=== PATIENT | male | born 1955 | race Two or more races ===

== ENCOUNTER 2022-06-09 09:57 | Inpatient (IN) | payer MEDICARE, MEDICAID ==
[~2022-06-09] VITALS: Ht 176 cm; Wt 90.7 kg
[~2022-06-09 09:57] MED LIST: ESOM20CA31 GT; HALO1TAB19 GT; LISI5TAB21 PO
[2022-06-09] MEDS ORDERED: ZOLPIDEM TARTRATE 10 MG TABLET PO PRN (15:00)
[2022-06-09] MEDS ORDERED: HALOPERIDOL 5 MG TABLET PO PRN (15:00)
[2022-06-09] MEDS ORDERED: LORazepam 2 MG TABLET PO PRN (15:00)
[2022-06-09] MEDS ORDERED: LEVO100 PO (15:04)
[2022-06-09] MEDS ORDERED: OMEP20CA13 PO (15:04)
[2022-06-09] MEDS ORDERED: SERT-440 PO (15:04)
[2022-06-09] MEDS ORDERED: LOVA20TA73 PO (15:04)
[2022-06-09] MEDS ORDERED: DIVA500T53 PO (15:04)
[2022-06-09] MEDS ORDERED: HALO10TA21 PO (15:04)
[2022-06-09] MEDS ORDERED: OXYB-34 PO (15:04)
[2022-06-09] MEDS ORDERED: DIPH50CA35 PO (15:04)
[2022-06-09] MEDS ORDERED: OLAN15TA36 PO (15:04)
[2022-06-09] MEDS ORDERED: BENZ2TAB71 PO (15:04)
[2022-06-09] MEDS ORDERED: ASPI-1444 PO (15:04)
[2022-06-09 15:05] VITALS: BP 138/62
[2022-06-09] MEDS: SERTRALINE HCL 100 MG TABLET PO SCH (19:29)
[2022-06-09] MEDS: OLANZapine 10 MG TABLET PO SCH (19:29)
[2022-06-09 20:24] VITALS: BP 129/71
[2022-06-09] MEDS: OXYBUTYNIN CHLORIDE 5 MG TABLET PO SCH ×2 (21:00→21:54)
[2022-06-09] MEDS: HALOPERIDOL 10 MG TABLET PO SCH ×2 (21:00→21:54)
[2022-06-09] MEDS: BENZTROPINE MESYLATE 2 MG TABLET PO SCH ×2 (21:00→21:51)
[2022-06-09] MEDS: DiphenhydrAMINE HCL 25 MG CAPSULE PO SCH ×2 (21:00→21:51)
[2022-06-09] MEDS: DIVALPROEX SODIUM 500 MG ER TABLET PO SCH ×2 (21:00→21:51)
[2022-06-10] MEDS: LEVOTHYROXINE SODIUM 100 MCG TABLET PO SCH (07:02)
[2022-06-10] MEDS: LOVASTATIN 20 MG TABLET PO SCH (07:14)
[2022-06-10 08:06] LABS: BASOPHILS % (AUTO) 0.3 % (0.0-2.0); EOSINOPHILS % (AUTO) 2.5 % (1.0-6.0); HEMATOCRIT 37.8 % (41-53); HEMOGLOBIN 12.6 g/dL (13.5-17.5); LYMPHOCYTES # (AUTO) 1.7 K/uL (1.0-4.8); LYMPHOCYTES % (AUTO) 22.7 % (22.0-44.0); MEAN CORPUSCULAR HEMOGLOBIN 29.3 pg (26.0-34.0); MEAN CORPUSCULAR HGB CONC 33.3 G/dL (31.0-37.0); MEAN CORPUSCULAR VOLUME 88 fL (80-100); MONOCYTES # (AUTO) 0.5 K/uL (0.1-1.0); MONOCYTES % (AUTO) 6.5 % (2.0-9.0); NEUTROPHILS # (AUTO) 5.2 K/uL (1.8-7.7); PLATELET COUNT (AUTO) 238 K/uL (150-450); RED BLOOD CELL COUNT(AUTO) 4.29 MIL/uL (4.50-5.90); RED CELL DISTRIBUTION WIDTH 16.2 % (11.5-14.5)
[2022-06-10] MEDS: SERTRALINE HCL 100 MG TABLET PO SCH ×2 (08:06→16:08)
[2022-06-10] MEDS: OMEPRAZOLE 20 MG CAPSULE PO SCH (08:06)
[2022-06-10] MEDS: ASPIRIN 81 MG DR TABLET PO SCH (08:06)
[2022-06-10] MEDS: OLANZapine 10 MG TABLET PO SCH ×2 (08:06→16:08)
[2022-06-10 08:34] VITALS: BP 121/66
[2022-06-10 08:37] LABS: HEMOGLOBIN A1C 6.4 % (3.8-5.6)
[2022-06-10 08:42] LABS: ALANINE AMINOTRANSFERASE 42 U/L (12-78); ALBUMIN 2.8 g/dL (3.4-5.0); ALKALINE PHOSPHATASE 111 U/L (46-116); ANION GAP 5 mmol/L (8-16); ASPARTATE AMINOTRANSFERASE 24 U/L (15-37); BILIRUBIN,TOTAL 0.4 mg/dL (0.1-1.0); CALCIUM, TOTAL 8.3 mg/dL (8.8-10.5); CARBON DIOXIDE 31 mmol/L (22-29); CHLORIDE 105 mmol/L (98-107); CHOL/HDL RATIO 3.5 (4.2-7.3); CHOLESTEROL 152 mg/dL (131-200); FREE T4 (FREE THYROXINE) 1.01 ng/dL (0.76-1.46); GLOMERULAR FILTR. RATE CALC > 60 mL/min (>60); GLUCOSE,RANDOM 89 mg/dL (70-110); HDL CHOLESTEROL 44 mg/dL (40-60); LDL CHOL (CALC.) 98 mg/dL (0-130); POTASSIUM 3.8 mmol/L (3.5-5.1); SODIUM SERUM 141 mmol/L (136-145); THYROID STIMULATING HORMONE 2.65 uIU/mL (0.36-3.74); TOTAL PROTEIN, SERUM 6.8 g/dL (6.4-8.2); TRIGLYCERIDES 48 mg/dL (15-150)
[2022-06-10] MEDS ORDERED: PETROLATUM,WHITE 28 GM JELLY TP PRN (11:00)
[2022-06-10] MEDS ORDERED: IBUPROFEN 400 MG TABLET PO PRN (11:00)
[2022-06-10] MEDS ORDERED: MAG HYDROX/AL HYDROX/SIMETH ES 30 ML SUSPENSION UDCUP PO PRN (11:00)
[2022-06-10] MEDS ORDERED: CloNIDine HCL 0.1 MG TABLET PO PRN (11:00)
[2022-06-10] MEDS ORDERED: NICOTINE 14 MG/24 HOUR PATCH TD PRN (11:00)
[2022-06-10] MEDS ORDERED: ALBUTEROL SULFATE HFA 90 MCG/PUFF 8 GM INHALER IH PRN (11:00)
[2022-06-10] MEDS ORDERED: MAGNESIUM HYDROXIDE SUSPENSION 30 ML UDCUP PO PRN (11:00)
[2022-06-10] MEDS ORDERED: DOCUSATE SODIUM 100 MG CAPSULE PO PRN (11:00)
[2022-06-10] MEDS ORDERED: GuaiFENesin/D-METHORPHAN [SUGAR-FREE] 200-20MG/10 ML SYRUP UDCUP PO PRN (11:00)
[2022-06-10] MEDS ORDERED: ONDANSETRON HCL 4 MG TABLET PO PRN (11:00)
[2022-06-10] MEDS ORDERED: LOPERAMIDE HCL 2 MG CAPSULE PO PRN (11:00)
[2022-06-10 20:04] VITALS: BP 135/73
[2022-06-10] MEDS: HALOPERIDOL 10 MG TABLET PO SCH (20:21)
[2022-06-10] MEDS: OXYBUTYNIN CHLORIDE 5 MG TABLET PO SCH (20:21)
[2022-06-10] MEDS: BENZTROPINE MESYLATE 2 MG TABLET PO SCH (20:22)
[2022-06-10] MEDS: DiphenhydrAMINE HCL 25 MG CAPSULE PO SCH (20:22)
[2022-06-10] MEDS: DIVALPROEX SODIUM 500 MG ER TABLET PO SCH (20:22)
[2022-06-11] MEDS: LEVOTHYROXINE SODIUM 100 MCG TABLET PO SCH (06:26)
[2022-06-11] MEDS ORDERED: PNEUMOCOCCAL VACCINE POLYVALENT 0.5 ML VIAL [PPSV23] IM. ONE (06:45)
[2022-06-11 08:03] VITALS: BP 144/84
[2022-06-11] MEDS: SERTRALINE HCL 100 MG TABLET PO SCH ×2 (09:18→16:43)
[2022-06-11] MEDS: ASPIRIN 81 MG DR TABLET PO SCH (09:18)
[2022-06-11] MEDS: OMEPRAZOLE 20 MG CAPSULE PO SCH (09:18)
[2022-06-11] MEDS: OLANZapine 10 MG TABLET PO SCH ×2 (09:19→16:43)
[2022-06-11] MEDS: LOVASTATIN 20 MG TABLET PO SCH (16:42)
[2022-06-11] MEDS: HALOPERIDOL 10 MG TABLET PO SCH (20:33)
[2022-06-11] MEDS: DIVALPROEX SODIUM 500 MG ER TABLET PO SCH (20:33)
[2022-06-11] MEDS: OXYBUTYNIN CHLORIDE 5 MG TABLET PO SCH (20:33)
[2022-06-11] MEDS: DiphenhydrAMINE HCL 25 MG CAPSULE PO SCH (20:33)
[2022-06-11] MEDS: BENZTROPINE MESYLATE 2 MG TABLET PO SCH (20:33)
[2022-06-11 20:43] VITALS: BP 128/74
[2022-06-12] MEDS: LEVOTHYROXINE SODIUM 100 MCG TABLET PO SCH (05:43)
[2022-06-12 08:38] VITALS: BP 141/70
[2022-06-12] MEDS: OLANZapine 10 MG TABLET PO SCH ×2 (08:47→16:51)
[2022-06-12] MEDS: SERTRALINE HCL 100 MG TABLET PO SCH ×2 (08:47→16:51)
[2022-06-12] MEDS: OMEPRAZOLE 20 MG CAPSULE PO SCH (08:47)
[2022-06-12] MEDS: ASPIRIN 81 MG DR TABLET PO SCH (08:48)
[2022-06-12] MEDS: LOVASTATIN 20 MG TABLET PO SCH (16:51)
[2022-06-12] MEDS: DiphenhydrAMINE HCL 25 MG CAPSULE PO SCH (20:32)
[2022-06-12] MEDS: BENZTROPINE MESYLATE 2 MG TABLET PO SCH (20:32)
[2022-06-12] MEDS: DIVALPROEX SODIUM 500 MG ER TABLET PO SCH (20:32)
[2022-06-12] MEDS: HALOPERIDOL 10 MG TABLET PO SCH (20:33)
[2022-06-12] MEDS: OXYBUTYNIN CHLORIDE 5 MG TABLET PO SCH (20:33)
[2022-06-12 20:40] VITALS: BP 142/72
[2022-06-13] MEDS: LEVOTHYROXINE SODIUM 100 MCG TABLET PO SCH (06:18)
[2022-06-13 08:18] LABS: APPEARANCE,URINE CLEAR (CLEAR); BILIRUBIN,URINE NEGATIVE (NEGATIVE); GLUCOSE, URINE (UA) NEGATIVE (NEGATIVE); KETONES,URINE NEGATIVE (NEGATIVE); LEUKOCYTE ESTERASE ,URINE NEGATIVE (NEGATIVE); NITRATE,URINE NEGATIVE (NEGATIVE); OCCULT BLOOD,URINE NEGATIVE (NEGATIVE); PH,URINE 5.5 (5.0-8.0); PROTEIN,URINE NEGATIVE (NEGATIVE); SPECIFIC GRAVITIY, URINE 1.005 (1.003-1.030); UROBILINOGEN,URINE <=1.0 mg/dL (<=1.0)
[2022-06-13 08:23] LABS: AMPHET/METH SCREEN,URINE NEGATIVE (NEGATIVE); BARBITURATE SCREEN, URINE NEGATIVE (NEGATIVE); BENZODIAZEPINES SCREEN,URINE NEGATIVE (NEGATIVE); CANNABINOID SCREEN,URINE NEGATIVE (NEGATIVE); COCAINE SCREEN,URINE NEGATIVE (NEGATIVE); METHADONE SCREEN, URINE NEGATIVE (NEGATIVE); OPIATE SCREEN,URINE NEGATIVE (NEGATIVE); PHENCYCLIDINE SCREEN,URINE NEGATIVE (NEGATIVE)
[2022-06-13 08:40] VITALS: BP 110/60
[2022-06-13] MEDS: ASPIRIN 81 MG DR TABLET PO SCH (09:04)
[2022-06-13] MEDS: SERTRALINE HCL 100 MG TABLET PO SCH ×2 (09:04→17:05)
[2022-06-13] MEDS: OLANZapine 10 MG TABLET PO SCH ×2 (09:04→17:05)
[2022-06-13] MEDS: OMEPRAZOLE 20 MG CAPSULE PO SCH (09:04)
[2022-06-13] MEDS: LOVASTATIN 20 MG TABLET PO SCH (17:05)
[2022-06-13 20:32] VITALS: BP 109/70
[2022-06-13] MEDS: DIVALPROEX SODIUM 500 MG ER TABLET PO SCH (20:42)
[2022-06-13] MEDS: HALOPERIDOL 10 MG TABLET PO SCH (20:42)
[2022-06-13] MEDS: OXYBUTYNIN CHLORIDE 5 MG TABLET PO SCH (20:43)
[2022-06-13] MEDS: BENZTROPINE MESYLATE 2 MG TABLET PO SCH (20:43)
[2022-06-13] MEDS: DiphenhydrAMINE HCL 25 MG CAPSULE PO SCH (20:43)
[2022-06-14] MEDS: LEVOTHYROXINE SODIUM 100 MCG TABLET PO SCH (06:13)
[2022-06-14 08:27] VITALS: BP 130/68
[2022-06-14] MEDS: SERTRALINE HCL 100 MG TABLET PO SCH ×2 (08:42→16:50)
[2022-06-14] MEDS: ASPIRIN 81 MG DR TABLET PO SCH (08:42)
[2022-06-14] MEDS: OLANZapine 10 MG TABLET PO SCH ×2 (08:42→16:50)
[2022-06-14] MEDS: OMEPRAZOLE 20 MG CAPSULE PO SCH (08:42)
[2022-06-14 11:30] LABS: GLUCOMETER DEV NAME(LOC) POC.BV
[2022-06-14] MEDS: LOVASTATIN 20 MG TABLET PO SCH (16:50)
[2022-06-14] MEDS: OXYBUTYNIN CHLORIDE 5 MG TABLET PO SCH (20:39)
[2022-06-14] MEDS: HALOPERIDOL 10 MG TABLET PO SCH (20:39)
[2022-06-14] MEDS: DiphenhydrAMINE HCL 25 MG CAPSULE PO SCH (20:40)
[2022-06-14] MEDS: DIVALPROEX SODIUM 500 MG ER TABLET PO SCH (20:40)
[2022-06-14] MEDS: BENZTROPINE MESYLATE 2 MG TABLET PO SCH (20:40)
[2022-06-14 20:51] VITALS: BP 128/58
[2022-06-15] MEDS: LEVOTHYROXINE SODIUM 100 MCG TABLET PO SCH (06:15)
[2022-06-15 08:35] VITALS: BP 145/69
[2022-06-15] MEDS: ASPIRIN 81 MG DR TABLET PO SCH (08:51)
[2022-06-15] MEDS: OMEPRAZOLE 20 MG CAPSULE PO SCH (08:51)
[2022-06-15] MEDS: SERTRALINE HCL 100 MG TABLET PO SCH ×2 (08:51→16:56)
[2022-06-15] MEDS: OLANZapine 10 MG TABLET PO SCH ×2 (08:51→16:56)
[2022-06-15] MEDS: LOVASTATIN 20 MG TABLET PO SCH (16:55)
[2022-06-15] MEDS: DiphenhydrAMINE HCL 25 MG CAPSULE PO SCH (20:17)
[2022-06-15] MEDS: OXYBUTYNIN CHLORIDE 5 MG TABLET PO SCH (20:18)
[2022-06-15] MEDS: ACETAMINOPHEN 325 MG TABLET PO PRN (20:18)
[2022-06-15] MEDS: BENZTROPINE MESYLATE 2 MG TABLET PO SCH (20:18)
[2022-06-15] MEDS: DIVALPROEX SODIUM 500 MG ER TABLET PO SCH (20:18)
[2022-06-15] MEDS: HALOPERIDOL 10 MG TABLET PO SCH (20:18)
[2022-06-15 20:40] VITALS: BP 129/70
[2022-06-16] MEDS: LEVOTHYROXINE SODIUM 100 MCG TABLET PO SCH (06:35)
[2022-06-16 08:55] VITALS: BP 132/66
[2022-06-16] MEDS: OMEPRAZOLE 20 MG CAPSULE PO SCH (08:59)
[2022-06-16] MEDS: SERTRALINE HCL 100 MG TABLET PO SCH ×2 (08:59→16:56)
[2022-06-16] MEDS: OLANZapine 10 MG TABLET PO SCH ×2 (08:59→16:56)
[2022-06-16] MEDS: ASPIRIN 81 MG DR TABLET PO SCH (08:59)
[2022-06-16] MEDS: LOVASTATIN 20 MG TABLET PO SCH (16:56)
[2022-06-16 20:43] VITALS: BP 114/66
[2022-06-16] MEDS: OXYBUTYNIN CHLORIDE 5 MG TABLET PO SCH (21:49)
[2022-06-16] MEDS: HALOPERIDOL 10 MG TABLET PO SCH (21:50)
[2022-06-16] MEDS: BENZTROPINE MESYLATE 2 MG TABLET PO SCH (21:50)
[2022-06-16] MEDS: DiphenhydrAMINE HCL 25 MG CAPSULE PO SCH (21:50)
[2022-06-16] MEDS: DIVALPROEX SODIUM 500 MG ER TABLET PO SCH (21:50)
[2022-06-17] MEDS: LEVOTHYROXINE SODIUM 100 MCG TABLET PO SCH (06:15)
[2022-06-17 08:37] VITALS: BP 126/60
[2022-06-17] MEDS: SERTRALINE HCL 100 MG TABLET PO SCH ×2 (09:35→16:40)
[2022-06-17] MEDS: OMEPRAZOLE 20 MG CAPSULE PO SCH (09:35)
[2022-06-17] MEDS: HALOPERIDOL 10 MG TABLET PO SCH ×2 (09:35→20:38)
[2022-06-17] MEDS: OLANZapine 10 MG TABLET PO SCH ×2 (09:35→16:40)
[2022-06-17] MEDS: ASPIRIN 81 MG DR TABLET PO SCH (09:35)
[2022-06-17] MEDS: LOVASTATIN 20 MG TABLET PO SCH (16:40)
[2022-06-17 20:33] VITALS: BP 126/64
[2022-06-17] MEDS: DiphenhydrAMINE HCL 25 MG CAPSULE PO SCH (20:37)
[2022-06-17] MEDS: BENZTROPINE MESYLATE 2 MG TABLET PO SCH (20:38)
[2022-06-17] MEDS: OXYBUTYNIN CHLORIDE 5 MG TABLET PO SCH (20:38)
[2022-06-17] MEDS: DIVALPROEX SODIUM 500 MG ER TABLET PO SCH (20:38)
[2022-06-18] MEDS: LEVOTHYROXINE SODIUM 100 MCG TABLET PO SCH (06:45)
[2022-06-18 08:48] VITALS: BP 120/65
[2022-06-18] MEDS: SERTRALINE HCL 100 MG TABLET PO SCH ×2 (09:48→17:19)
[2022-06-18] MEDS: OMEPRAZOLE 20 MG CAPSULE PO SCH (09:48)
[2022-06-18] MEDS: HALOPERIDOL 10 MG TABLET PO SCH ×2 (09:48→21:37)
[2022-06-18] MEDS: OLANZapine 10 MG TABLET PO SCH ×2 (09:48→17:19)
[2022-06-18] MEDS: ASPIRIN 81 MG DR TABLET PO SCH (09:48)
[2022-06-18] MEDS: LOVASTATIN 20 MG TABLET PO SCH (17:20)
[2022-06-18] MEDS: BENZTROPINE MESYLATE 2 MG TABLET PO SCH (21:35)
[2022-06-18] MEDS: DiphenhydrAMINE HCL 25 MG CAPSULE PO SCH (21:35)
[2022-06-18] MEDS: DIVALPROEX SODIUM 500 MG ER TABLET PO SCH (21:36)
[2022-06-18] MEDS: OXYBUTYNIN CHLORIDE 5 MG TABLET PO SCH (21:37)
[2022-06-18 22:18] VITALS: BP 130/60
[2022-06-19] MEDS: LEVOTHYROXINE SODIUM 100 MCG TABLET PO SCH (06:40)
[2022-06-19 08:12] VITALS: BP 119/64
[2022-06-19] MEDS: ASPIRIN 81 MG DR TABLET PO SCH (08:18)
[2022-06-19] MEDS: OMEPRAZOLE 20 MG CAPSULE PO SCH (08:18)
[2022-06-19] MEDS: OLANZapine 10 MG TABLET PO SCH ×2 (08:18→16:54)
[2022-06-19] MEDS: HALOPERIDOL 10 MG TABLET PO SCH ×2 (08:18→20:37)
[2022-06-19] MEDS: SERTRALINE HCL 100 MG TABLET PO SCH ×2 (08:18→16:54)
[2022-06-19] MEDS: LOVASTATIN 20 MG TABLET PO SCH (16:54)
[2022-06-19 20:05] VITALS: BP 137/64
[2022-06-19] MEDS: DIVALPROEX SODIUM 500 MG ER TABLET PO SCH (20:37)
[2022-06-19] MEDS: BENZTROPINE MESYLATE 2 MG TABLET PO SCH (20:37)
[2022-06-19] MEDS: OXYBUTYNIN CHLORIDE 5 MG TABLET PO SCH (20:37)
[2022-06-19] MEDS: DiphenhydrAMINE HCL 25 MG CAPSULE PO SCH (20:37)
[2022-06-20] MEDS: LEVOTHYROXINE SODIUM 100 MCG TABLET PO SCH (06:38)
[2022-06-20 08:36] VITALS: BP 122/68
[2022-06-20] MEDS: OLANZapine 10 MG TABLET PO SCH ×2 (08:40→16:54)
[2022-06-20] MEDS: HALOPERIDOL 10 MG TABLET PO SCH ×2 (08:40→20:10)
[2022-06-20] MEDS: ASPIRIN 81 MG DR TABLET PO SCH (08:40)
[2022-06-20] MEDS: OMEPRAZOLE 20 MG CAPSULE PO SCH (08:40)
[2022-06-20] MEDS: SERTRALINE HCL 100 MG TABLET PO SCH ×2 (08:40→16:54)
[2022-06-20] MEDS: LOVASTATIN 20 MG TABLET PO SCH (16:54)
[2022-06-20] MEDS: DiphenhydrAMINE HCL 25 MG CAPSULE PO SCH (20:10)
[2022-06-20] MEDS: BENZTROPINE MESYLATE 2 MG TABLET PO SCH (20:10)
[2022-06-20] MEDS: OXYBUTYNIN CHLORIDE 5 MG TABLET PO SCH (20:10)
[2022-06-20] MEDS: DIVALPROEX SODIUM 500 MG ER TABLET PO SCH (20:10)
[2022-06-20 20:18] VITALS: BP 114/57
[2022-06-21] MEDS: LEVOTHYROXINE SODIUM 100 MCG TABLET PO SCH (07:13)
[2022-06-21 08:49] VITALS: BP 130/83
[2022-06-21] MEDS: HALOPERIDOL 10 MG TABLET PO SCH ×2 (09:11→20:43)
[2022-06-21] MEDS: ASPIRIN 81 MG DR TABLET PO SCH (09:11)
[2022-06-21] MEDS: SERTRALINE HCL 100 MG TABLET PO SCH ×2 (09:11→17:07)
[2022-06-21] MEDS: OLANZapine 10 MG TABLET PO SCH ×2 (09:12→17:07)
[2022-06-21] MEDS: OMEPRAZOLE 20 MG CAPSULE PO SCH (09:12)
[2022-06-21] MEDS: LOVASTATIN 20 MG TABLET PO SCH (17:07)
[2022-06-21 18:41] LABS: GLUCOMETER DEV NAME(LOC) POC.BV
[2022-06-21 20:08] VITALS: BP 116/58
[2022-06-21] MEDS: BENZTROPINE MESYLATE 2 MG TABLET PO SCH (20:43)
[2022-06-21] MEDS: DiphenhydrAMINE HCL 25 MG CAPSULE PO SCH (20:43)
[2022-06-21] MEDS: OXYBUTYNIN CHLORIDE 5 MG TABLET PO SCH (20:43)
[2022-06-21] MEDS: DIVALPROEX SODIUM 500 MG ER TABLET PO SCH (20:43)
[2022-06-22] MEDS: LEVOTHYROXINE SODIUM 100 MCG TABLET PO SCH (06:53)
[2022-06-22 08:23] VITALS: BP 117/58
[2022-06-22] MEDS: SERTRALINE HCL 100 MG TABLET PO SCH ×2 (08:24→16:46)
[2022-06-22] MEDS: HALOPERIDOL 10 MG TABLET PO SCH ×2 (08:24→20:21)
[2022-06-22] MEDS: OMEPRAZOLE 20 MG CAPSULE PO SCH (08:24)
[2022-06-22] MEDS: OLANZapine 10 MG TABLET PO SCH ×2 (08:24→16:46)
[2022-06-22] MEDS: ASPIRIN 81 MG DR TABLET PO SCH (08:25)
[2022-06-22] MEDS: LOVASTATIN 20 MG TABLET PO SCH (16:47)
[2022-06-22] MEDS: BENZTROPINE MESYLATE 2 MG TABLET PO SCH (20:20)
[2022-06-22] MEDS: DiphenhydrAMINE HCL 25 MG CAPSULE PO SCH (20:20)
[2022-06-22] MEDS: DIVALPROEX SODIUM 500 MG ER TABLET PO SCH (20:21)
[2022-06-22] MEDS: OXYBUTYNIN CHLORIDE 5 MG TABLET PO SCH (20:21)
[2022-06-22 20:24] VITALS: BP 141/74
[2022-06-23] MEDS: LEVOTHYROXINE SODIUM 100 MCG TABLET PO SCH (06:00)
[2022-06-23 08:14] VITALS: BP 127/61
[2022-06-23] MEDS: OLANZapine 10 MG TABLET PO SCH ×2 (08:19→16:35)
[2022-06-23] MEDS: SERTRALINE HCL 100 MG TABLET PO SCH ×2 (08:19→16:35)
[2022-06-23] MEDS: OMEPRAZOLE 20 MG CAPSULE PO SCH (08:19)
[2022-06-23] MEDS: HALOPERIDOL 10 MG TABLET PO SCH ×2 (08:19→20:07)
[2022-06-23] MEDS: ASPIRIN 81 MG DR TABLET PO SCH (08:20)
[2022-06-23] MEDS: LOVASTATIN 20 MG TABLET PO SCH (16:35)
[2022-06-23 20:00] VITALS: BP 138/74
[2022-06-23] MEDS: BENZTROPINE MESYLATE 2 MG TABLET PO SCH (20:07)
[2022-06-23] MEDS: DIVALPROEX SODIUM 500 MG ER TABLET PO SCH (20:07)
[2022-06-23] MEDS: OXYBUTYNIN CHLORIDE 5 MG TABLET PO SCH (20:07)
[2022-06-23] MEDS: DiphenhydrAMINE HCL 25 MG CAPSULE PO SCH (20:07)
[2022-06-24] MEDS: LEVOTHYROXINE SODIUM 100 MCG TABLET PO SCH (06:46)
[2022-06-24 08:14] VITALS: BP 134/69
[2022-06-24] MEDS: OLANZapine 10 MG TABLET PO SCH ×2 (08:25→16:44)
[2022-06-24] MEDS: ASPIRIN 81 MG DR TABLET PO SCH (08:25)
[2022-06-24] MEDS: SERTRALINE HCL 100 MG TABLET PO SCH ×2 (08:25→16:44)
[2022-06-24] MEDS: OMEPRAZOLE 20 MG CAPSULE PO SCH (08:25)
[2022-06-24] MEDS: HALOPERIDOL 10 MG TABLET PO SCH ×2 (08:25→20:04)
[2022-06-24] MEDS: LOVASTATIN 20 MG TABLET PO SCH (16:43)
[2022-06-24] MEDS: DiphenhydrAMINE HCL 25 MG CAPSULE PO SCH (20:03)
[2022-06-24] MEDS: BENZTROPINE MESYLATE 2 MG TABLET PO SCH (20:03)
[2022-06-24] MEDS: DIVALPROEX SODIUM 500 MG ER TABLET PO SCH (20:03)
[2022-06-24] MEDS: OXYBUTYNIN CHLORIDE 5 MG TABLET PO SCH (20:04)
[2022-06-24 20:45] VITALS: BP 129/69
[2022-06-25] MEDS: LEVOTHYROXINE SODIUM 100 MCG TABLET PO SCH (06:32)
[2022-06-25] MEDS: OMEPRAZOLE 20 MG CAPSULE PO SCH (08:30)
[2022-06-25] MEDS: HALOPERIDOL 10 MG TABLET PO SCH ×2 (08:30→21:38)
[2022-06-25] MEDS: SERTRALINE HCL 100 MG TABLET PO SCH ×2 (08:30→16:52)
[2022-06-25] MEDS: OLANZapine 10 MG TABLET PO SCH ×2 (08:30→16:52)
[2022-06-25] MEDS: ASPIRIN 81 MG DR TABLET PO SCH (08:31)
[2022-06-25 08:44] VITALS: BP 113/64
[2022-06-25] MEDS: LOVASTATIN 20 MG TABLET PO SCH (16:52)
[2022-06-25 20:30] VITALS: BP 141/65
[2022-06-25] MEDS: DIVALPROEX SODIUM 500 MG ER TABLET PO SCH (21:22)
[2022-06-25] MEDS: BENZTROPINE MESYLATE 2 MG TABLET PO SCH (21:23)
[2022-06-25] MEDS: DiphenhydrAMINE HCL 25 MG CAPSULE PO SCH (21:23)
[2022-06-25] MEDS: OXYBUTYNIN CHLORIDE 5 MG TABLET PO SCH (21:38)
[2022-06-26] MEDS: LEVOTHYROXINE SODIUM 100 MCG TABLET PO SCH (06:38)
[2022-06-26] MEDS: ASPIRIN 81 MG DR TABLET PO SCH (08:08)
[2022-06-26] MEDS: SERTRALINE HCL 100 MG TABLET PO SCH ×2 (08:08→16:07)
[2022-06-26] MEDS: OLANZapine 10 MG TABLET PO SCH ×2 (08:09→16:07)
[2022-06-26] MEDS: OMEPRAZOLE 20 MG CAPSULE PO SCH (08:09)
[2022-06-26] MEDS: HALOPERIDOL 10 MG TABLET PO SCH ×2 (08:09→20:30)
[2022-06-26 08:25] VITALS: BP 122/73
[2022-06-26] MEDS: LOVASTATIN 20 MG TABLET PO SCH (16:07)
[2022-06-26 20:00] VITALS: BP 126/68
[2022-06-26] MEDS: DIVALPROEX SODIUM 500 MG ER TABLET PO SCH (20:30)
[2022-06-26] MEDS: DiphenhydrAMINE HCL 25 MG CAPSULE PO SCH (20:30)
[2022-06-26] MEDS: BENZTROPINE MESYLATE 2 MG TABLET PO SCH (20:30)
[2022-06-26] MEDS: OXYBUTYNIN CHLORIDE 5 MG TABLET PO SCH (20:30)
[2022-06-27] MEDS: LEVOTHYROXINE SODIUM 100 MCG TABLET PO SCH (06:41)
[2022-06-27 08:18] VITALS: BP 109/65
[2022-06-27] MEDS: ASPIRIN 81 MG DR TABLET PO SCH (08:38)
[2022-06-27] MEDS: OMEPRAZOLE 20 MG CAPSULE PO SCH (08:38)
[2022-06-27] MEDS: OLANZapine 10 MG TABLET PO SCH ×2 (08:38→17:02)
[2022-06-27] MEDS: HALOPERIDOL 10 MG TABLET PO SCH ×2 (08:38→20:08)
[2022-06-27] MEDS: SERTRALINE HCL 100 MG TABLET PO SCH ×2 (08:38→17:02)
[2022-06-27] MEDS: LOVASTATIN 20 MG TABLET PO SCH (17:02)
[2022-06-27] MEDS: DiphenhydrAMINE HCL 25 MG CAPSULE PO SCH (20:07)
[2022-06-27] MEDS: DIVALPROEX SODIUM 500 MG ER TABLET PO SCH (20:07)
[2022-06-27] MEDS: BENZTROPINE MESYLATE 2 MG TABLET PO SCH (20:07)
[2022-06-27] MEDS: OXYBUTYNIN CHLORIDE 5 MG TABLET PO SCH (20:08)
[2022-06-27 20:22] VITALS: BP 127/61
[2022-06-28] MEDS: LEVOTHYROXINE SODIUM 100 MCG TABLET PO SCH (06:23)
[2022-06-28] MEDS: OMEPRAZOLE 20 MG CAPSULE PO SCH (08:14)
[2022-06-28] MEDS: HALOPERIDOL 10 MG TABLET PO SCH ×2 (08:14→20:21)
[2022-06-28] MEDS: SERTRALINE HCL 100 MG TABLET PO SCH ×2 (08:14→16:39)
[2022-06-28] MEDS: ASPIRIN 81 MG DR TABLET PO SCH (08:14)
[2022-06-28] MEDS: OLANZapine 10 MG TABLET PO SCH ×2 (08:14→16:39)
[2022-06-28 08:17] VITALS: BP 133/69
[2022-06-28] MEDS: LOVASTATIN 20 MG TABLET PO SCH (16:39)
[2022-06-28 20:13] VITALS: BP 115/60
[2022-06-28] MEDS: OXYBUTYNIN CHLORIDE 5 MG TABLET PO SCH (20:21)
[2022-06-28] MEDS: DIVALPROEX SODIUM 500 MG ER TABLET PO SCH (20:21)
[2022-06-28] MEDS: BENZTROPINE MESYLATE 2 MG TABLET PO SCH (20:21)
[2022-06-28] MEDS: DiphenhydrAMINE HCL 25 MG CAPSULE PO SCH (20:21)
[2022-06-29] MEDS: LEVOTHYROXINE SODIUM 100 MCG TABLET PO SCH (06:39)
[2022-06-29] MEDS: OLANZapine 10 MG TABLET PO SCH ×2 (08:20→17:01)
[2022-06-29] MEDS: ASPIRIN 81 MG DR TABLET PO SCH (08:20)
[2022-06-29] MEDS: HALOPERIDOL 10 MG TABLET PO SCH ×2 (08:20→21:26)
[2022-06-29] MEDS: OMEPRAZOLE 20 MG CAPSULE PO SCH (08:20)
[2022-06-29] MEDS: SERTRALINE HCL 100 MG TABLET PO SCH ×2 (08:20→17:01)
[2022-06-29 08:37] VITALS: BP 143/69
[2022-06-29] MEDS: LOVASTATIN 20 MG TABLET PO SCH (17:01)
[2022-06-29] MEDS: DiphenhydrAMINE HCL 25 MG CAPSULE PO SCH (20:07)
[2022-06-29] MEDS: DIVALPROEX SODIUM 500 MG ER TABLET PO SCH (20:07)
[2022-06-29] MEDS: BENZTROPINE MESYLATE 2 MG TABLET PO SCH (20:07)
[2022-06-29 20:37] VITALS: BP 122/66
[2022-06-29] MEDS: OXYBUTYNIN CHLORIDE 5 MG TABLET PO SCH (21:26)
[2022-06-30] MEDS: LEVOTHYROXINE SODIUM 100 MCG TABLET PO SCH (06:11)
[2022-06-30] MEDS: OLANZapine 10 MG TABLET PO SCH ×2 (08:23→16:33)
[2022-06-30] MEDS: OMEPRAZOLE 20 MG CAPSULE PO SCH (08:23)
[2022-06-30] MEDS: SERTRALINE HCL 100 MG TABLET PO SCH ×2 (08:23→16:33)
[2022-06-30] MEDS: HALOPERIDOL 10 MG TABLET PO SCH ×2 (08:24→20:21)
[2022-06-30] MEDS: ASPIRIN 81 MG DR TABLET PO SCH (08:24)
[2022-06-30 08:29] VITALS: BP 136/68
[2022-06-30] MEDS: LOVASTATIN 20 MG TABLET PO SCH (16:33)
[2022-06-30 20:16] VITALS: BP 139/67
[2022-06-30] MEDS: OXYBUTYNIN CHLORIDE 5 MG TABLET PO SCH (20:20)
[2022-06-30] MEDS: BENZTROPINE MESYLATE 2 MG TABLET PO SCH (20:20)
[2022-06-30] MEDS: DiphenhydrAMINE HCL 25 MG CAPSULE PO SCH (20:21)
[2022-06-30] MEDS: DIVALPROEX SODIUM 500 MG ER TABLET PO SCH (20:21)
[2022-07-01] MEDS: LEVOTHYROXINE SODIUM 100 MCG TABLET PO SCH (06:39)
[2022-07-01 08:09] VITALS: BP 109/74
[2022-07-01] MEDS: OLANZapine 10 MG TABLET PO SCH ×2 (08:25→16:44)
[2022-07-01] MEDS: ASPIRIN 81 MG DR TABLET PO SCH (08:25)
[2022-07-01] MEDS: SERTRALINE HCL 100 MG TABLET PO SCH ×2 (08:25→16:44)
[2022-07-01] MEDS: HALOPERIDOL 10 MG TABLET PO SCH ×2 (08:25→20:07)
[2022-07-01] MEDS: OMEPRAZOLE 20 MG CAPSULE PO SCH (08:25)
[2022-07-01] MEDS: LOVASTATIN 20 MG TABLET PO SCH (16:44)
[2022-07-01] MEDS: BENZTROPINE MESYLATE 2 MG TABLET PO SCH (20:07)
[2022-07-01] MEDS: OXYBUTYNIN CHLORIDE 5 MG TABLET PO SCH (20:07)
[2022-07-01] MEDS: DiphenhydrAMINE HCL 25 MG CAPSULE PO SCH (20:07)
[2022-07-01] MEDS: DIVALPROEX SODIUM 500 MG ER TABLET PO SCH (20:07)
[2022-07-01 20:12] VITALS: BP 137/77
[2022-07-01] MEDS: ACETAMINOPHEN 325 MG TABLET PO PRN (23:37)
[2022-07-01 23:45] VITALS: BP 154/87
[2022-07-02] MEDS: LEVOTHYROXINE SODIUM 100 MCG TABLET PO SCH (06:32)
[2022-07-02 06:51] VITALS: BP 136/78
[2022-07-02 08:17] VITALS: BP 144/84
[2022-07-02] MEDS: HALOPERIDOL 10 MG TABLET PO SCH ×2 (08:43→20:18)
[2022-07-02] MEDS: OLANZapine 10 MG TABLET PO SCH ×2 (08:43→16:45)
[2022-07-02] MEDS: SERTRALINE HCL 100 MG TABLET PO SCH ×2 (08:43→16:45)
[2022-07-02] MEDS: ASPIRIN 81 MG DR TABLET PO SCH (08:43)
[2022-07-02] MEDS: OMEPRAZOLE 20 MG CAPSULE PO SCH (08:43)
[2022-07-02] MEDS: LOVASTATIN 20 MG TABLET PO SCH (16:45)
[2022-07-02] MEDS: DiphenhydrAMINE HCL 25 MG CAPSULE PO SCH (20:18)
[2022-07-02] MEDS: OXYBUTYNIN CHLORIDE 5 MG TABLET PO SCH (20:18)
[2022-07-02] MEDS: DIVALPROEX SODIUM 500 MG ER TABLET PO SCH (20:18)
[2022-07-02] MEDS: BENZTROPINE MESYLATE 2 MG TABLET PO SCH (20:18)
[2022-07-02 20:22] VITALS: BP 141/79
[2022-07-03] MEDS: LEVOTHYROXINE SODIUM 100 MCG TABLET PO SCH (06:46)
[2022-07-03] MEDS: ASPIRIN 81 MG DR TABLET PO SCH (08:21)
[2022-07-03] MEDS: OMEPRAZOLE 20 MG CAPSULE PO SCH (08:21)
[2022-07-03] MEDS: HALOPERIDOL 10 MG TABLET PO SCH ×2 (08:21→20:36)
[2022-07-03] MEDS: OLANZapine 10 MG TABLET PO SCH ×2 (08:21→16:43)
[2022-07-03] MEDS: SERTRALINE HCL 100 MG TABLET PO SCH ×2 (08:21→16:43)
[2022-07-03 08:27] VITALS: BP 143/82
[2022-07-03] MEDS: LOVASTATIN 20 MG TABLET PO SCH (16:43)
[2022-07-03 20:20] VITALS: BP 149/74
[2022-07-03] MEDS: BENZTROPINE MESYLATE 2 MG TABLET PO SCH (20:35)
[2022-07-03] MEDS: DIVALPROEX SODIUM 500 MG ER TABLET PO SCH (20:36)
[2022-07-03] MEDS: OXYBUTYNIN CHLORIDE 5 MG TABLET PO SCH (20:36)
[2022-07-03] MEDS: DiphenhydrAMINE HCL 25 MG CAPSULE PO SCH (20:36)
[2022-07-04] MEDS: LEVOTHYROXINE SODIUM 100 MCG TABLET PO SCH (06:36)
[2022-07-04] MEDS: OMEPRAZOLE 20 MG CAPSULE PO SCH (08:07)
[2022-07-04] MEDS: HALOPERIDOL 10 MG TABLET PO SCH ×2 (08:07→20:15)
[2022-07-04] MEDS: ASPIRIN 81 MG DR TABLET PO SCH (08:07)
[2022-07-04] MEDS: SERTRALINE HCL 100 MG TABLET PO SCH ×2 (08:07→16:40)
[2022-07-04] MEDS: OLANZapine 10 MG TABLET PO SCH ×2 (08:07→16:40)
[2022-07-04 08:20] VITALS: BP 107/68
[2022-07-04] MEDS ORDERED: LORazepam 2 MG TABLET PO PRN (09:15)
[2022-07-04] MEDS ORDERED: ZOLPIDEM TARTRATE 10 MG TABLET PO PRN (09:15)
[2022-07-04 16:09] VITALS: BP 134/55
[2022-07-04] MEDS: LOVASTATIN 20 MG TABLET PO SCH (16:40)
[2022-07-04] MEDS: OXYBUTYNIN CHLORIDE 5 MG TABLET PO SCH (20:15)
[2022-07-04] MEDS: DiphenhydrAMINE HCL 25 MG CAPSULE PO SCH (20:15)
[2022-07-04] MEDS: BENZTROPINE MESYLATE 2 MG TABLET PO SCH (20:15)
[2022-07-04] MEDS: DIVALPROEX SODIUM 500 MG ER TABLET PO SCH (20:15)
[2022-07-04] MEDS: ACETAMINOPHEN 325 MG TABLET PO PRN (21:22)
[2022-07-05 05:47] VITALS: BP 119/63
[2022-07-05] MEDS: LEVOTHYROXINE SODIUM 100 MCG TABLET PO SCH (06:10)
[2022-07-05 08:43] VITALS: BP 130/70
[2022-07-05] MEDS: OLANZapine 10 MG TABLET PO SCH ×2 (09:20→17:48)
[2022-07-05] MEDS: HALOPERIDOL 10 MG TABLET PO SCH ×2 (09:20→21:00)
[2022-07-05] MEDS: OMEPRAZOLE 20 MG CAPSULE PO SCH (09:20)
[2022-07-05] MEDS: ASPIRIN 81 MG DR TABLET PO SCH (09:21)
[2022-07-05] MEDS: SERTRALINE HCL 100 MG TABLET PO SCH ×2 (09:21→17:48)
[2022-07-05 16:09] VITALS: BP 112/68
[2022-07-05] MEDS: LOVASTATIN 20 MG TABLET PO SCH (17:48)
[2022-07-05] MEDS: DIVALPROEX SODIUM 500 MG ER TABLET PO SCH (20:56)
[2022-07-05] MEDS: BENZTROPINE MESYLATE 2 MG TABLET PO SCH (20:56)
[2022-07-05] MEDS: DiphenhydrAMINE HCL 25 MG CAPSULE PO SCH (20:56)
[2022-07-05] MEDS: OXYBUTYNIN CHLORIDE 5 MG TABLET PO SCH (21:00)
[2022-07-06 01:06] VITALS: BP 128/66
[2022-07-06] MEDS: LEVOTHYROXINE SODIUM 100 MCG TABLET PO SCH (06:49)
[2022-07-06] MEDS: HALOPERIDOL 10 MG TABLET PO SCH ×2 (08:09→20:11)
[2022-07-06] MEDS: SERTRALINE HCL 100 MG TABLET PO SCH ×2 (08:09→16:36)
[2022-07-06] MEDS: ASPIRIN 81 MG DR TABLET PO SCH (08:09)
[2022-07-06] MEDS: OMEPRAZOLE 20 MG CAPSULE PO SCH (08:10)
[2022-07-06] MEDS: OLANZapine 10 MG TABLET PO SCH ×2 (08:10→16:36)
[2022-07-06 08:16] VITALS: BP 131/70
[2022-07-06] MEDS: LOVASTATIN 20 MG TABLET PO SCH (16:36)
[2022-07-06 17:33] VITALS: BP 138/66
[2022-07-06] MEDS: BENZTROPINE MESYLATE 2 MG TABLET PO SCH (20:11)
[2022-07-06] MEDS: DIVALPROEX SODIUM 500 MG ER TABLET PO SCH (20:11)
[2022-07-06] MEDS: OXYBUTYNIN CHLORIDE 5 MG TABLET PO SCH (20:11)
[2022-07-06] MEDS: DiphenhydrAMINE HCL 25 MG CAPSULE PO SCH (20:11)
[2022-07-07 00:30] VITALS: BP 132/64
[2022-07-07] MEDS: LEVOTHYROXINE SODIUM 100 MCG TABLET PO SCH (06:32)
[2022-07-07 08:13] VITALS: BP 131/78
[2022-07-07] MEDS: ASPIRIN 81 MG DR TABLET PO SCH (08:19)
[2022-07-07] MEDS: HALOPERIDOL 10 MG TABLET PO SCH ×2 (08:19→20:44)
[2022-07-07] MEDS: SERTRALINE HCL 100 MG TABLET PO SCH ×2 (08:19→16:31)
[2022-07-07] MEDS: OMEPRAZOLE 20 MG CAPSULE PO SCH (08:19)
[2022-07-07] MEDS: OLANZapine 7.5 MG TABLET PO SCH ×2 (08:20→16:31)
[2022-07-07] MEDS: LOVASTATIN 20 MG TABLET PO SCH (16:30)
[2022-07-07 16:40] VITALS: BP 130/66
[2022-07-07] MEDS: DiphenhydrAMINE HCL 25 MG CAPSULE PO SCH (20:43)
[2022-07-07] MEDS: BENZTROPINE MESYLATE 2 MG TABLET PO SCH (20:43)
[2022-07-07] MEDS: DIVALPROEX SODIUM 500 MG ER TABLET PO SCH (20:44)
[2022-07-07] MEDS: OXYBUTYNIN CHLORIDE 5 MG TABLET PO SCH (20:44)
[2022-07-08 00:31] VITALS: BP 134/69
[2022-07-08] MEDS: LEVOTHYROXINE SODIUM 100 MCG TABLET PO SCH (06:33)
[2022-07-08] MEDS: HALOPERIDOL 10 MG TABLET PO SCH ×2 (08:18→20:19)
[2022-07-08] MEDS: SERTRALINE HCL 100 MG TABLET PO SCH ×2 (08:18→16:58)
[2022-07-08] MEDS: ASPIRIN 81 MG DR TABLET PO SCH (08:18)
[2022-07-08] MEDS: OLANZapine 7.5 MG TABLET PO SCH ×2 (08:18→16:58)
[2022-07-08] MEDS: OMEPRAZOLE 20 MG CAPSULE PO SCH (08:18)
[2022-07-08 08:19] VITALS: BP 124/81
[2022-07-08 16:16] VITALS: BP 122/62
[2022-07-08] MEDS: LOVASTATIN 20 MG TABLET PO SCH (16:58)
[2022-07-08] MEDS: BENZTROPINE MESYLATE 2 MG TABLET PO SCH (20:19)
[2022-07-08] MEDS: DiphenhydrAMINE HCL 25 MG CAPSULE PO SCH (20:19)
[2022-07-08] MEDS: DIVALPROEX SODIUM 500 MG ER TABLET PO SCH (20:19)
[2022-07-08] MEDS: OXYBUTYNIN CHLORIDE 5 MG TABLET PO SCH (20:19)
[2022-07-09 00:49] VITALS: BP 124/66
[2022-07-09] MEDS: LEVOTHYROXINE SODIUM 100 MCG TABLET PO SCH (06:34)
[2022-07-09] MEDS: HALOPERIDOL 10 MG TABLET PO SCH ×2 (08:12→21:06)
[2022-07-09] MEDS: OMEPRAZOLE 20 MG CAPSULE PO SCH (08:12)
[2022-07-09] MEDS: ASPIRIN 81 MG DR TABLET PO SCH (08:12)
[2022-07-09] MEDS: SERTRALINE HCL 100 MG TABLET PO SCH ×2 (08:12→17:43)
[2022-07-09] MEDS: OLANZapine 7.5 MG TABLET PO SCH ×2 (08:12→17:43)
[2022-07-09 08:27] VITALS: BP 122/61
[2022-07-09] MEDS: LOVASTATIN 20 MG TABLET PO SCH (17:43)
[2022-07-09 20:10] VITALS: BP 128/79
[2022-07-09] MEDS: DiphenhydrAMINE HCL 25 MG CAPSULE PO SCH (21:06)
[2022-07-09] MEDS: OXYBUTYNIN CHLORIDE 5 MG TABLET PO SCH (21:06)
[2022-07-09] MEDS: DIVALPROEX SODIUM 500 MG ER TABLET PO SCH (21:06)
[2022-07-09] MEDS: BENZTROPINE MESYLATE 2 MG TABLET PO SCH (21:55)
[2022-07-10 05:59] VITALS: BP 118/73
[2022-07-10] MEDS: LEVOTHYROXINE SODIUM 100 MCG TABLET PO SCH (06:22)
[2022-07-10] MEDS: OLANZapine 7.5 MG TABLET PO SCH ×2 (08:11→16:55)
[2022-07-10] MEDS: HALOPERIDOL 10 MG TABLET PO SCH ×2 (08:11→20:33)
[2022-07-10] MEDS: SERTRALINE HCL 100 MG TABLET PO SCH ×2 (08:11→16:55)
[2022-07-10] MEDS: ASPIRIN 81 MG DR TABLET PO SCH (08:11)
[2022-07-10] MEDS: OMEPRAZOLE 20 MG CAPSULE PO SCH (08:11)
[2022-07-10 08:27] VITALS: BP 137/69
[2022-07-10 16:04] VITALS: BP 127/63
[2022-07-10] MEDS: LOVASTATIN 20 MG TABLET PO SCH (16:55)
[2022-07-10 20:24] VITALS: BP 136/71
[2022-07-10] MEDS: BENZTROPINE MESYLATE 2 MG TABLET PO SCH (20:33)
[2022-07-10] MEDS: DIVALPROEX SODIUM 500 MG ER TABLET PO SCH (20:33)
[2022-07-10] MEDS: OXYBUTYNIN CHLORIDE 5 MG TABLET PO SCH (20:33)
[2022-07-10] MEDS: DiphenhydrAMINE HCL 25 MG CAPSULE PO SCH (20:34)
[2022-07-11 00:22] VITALS: BP 136/71
[2022-07-11] MEDS: LEVOTHYROXINE SODIUM 100 MCG TABLET PO SCH (06:25)
[2022-07-11] MEDS: SERTRALINE HCL 100 MG TABLET PO SCH ×2 (08:04→16:58)
[2022-07-11] MEDS: OLANZapine 7.5 MG TABLET PO SCH ×2 (08:04→16:58)
[2022-07-11] MEDS: HALOPERIDOL 10 MG TABLET PO SCH ×2 (08:04→20:49)
[2022-07-11] MEDS: ASPIRIN 81 MG DR TABLET PO SCH (08:04)
[2022-07-11] MEDS: OMEPRAZOLE 20 MG CAPSULE PO SCH (08:04)
[2022-07-11 08:15] VITALS: BP 134/76
[2022-07-11 16:27] VITALS: BP 140/70
[2022-07-11] MEDS: LOVASTATIN 20 MG TABLET PO SCH (16:58)
[2022-07-11] MEDS: OXYBUTYNIN CHLORIDE 5 MG TABLET PO SCH (20:49)
[2022-07-11] MEDS: DiphenhydrAMINE HCL 25 MG CAPSULE PO SCH (20:49)
[2022-07-11] MEDS: DIVALPROEX SODIUM 500 MG ER TABLET PO SCH (20:49)
[2022-07-11] MEDS: BENZTROPINE MESYLATE 2 MG TABLET PO SCH (20:49)
[2022-07-12 04:03] VITALS: BP 128/68
[2022-07-12] MEDS: LEVOTHYROXINE SODIUM 100 MCG TABLET PO SCH (06:27)
[2022-07-12] MEDS: SERTRALINE HCL 100 MG TABLET PO SCH ×2 (08:03→16:53)
[2022-07-12] MEDS: HALOPERIDOL 10 MG TABLET PO SCH ×2 (08:03→20:25)
[2022-07-12] MEDS: OMEPRAZOLE 20 MG CAPSULE PO SCH (08:03)
[2022-07-12] MEDS: OLANZapine 7.5 MG TABLET PO SCH ×2 (08:03→16:53)
[2022-07-12 08:04] VITALS: BP 126/88
[2022-07-12] MEDS: ASPIRIN 81 MG DR TABLET PO SCH (08:04)
[2022-07-12 16:19] VITALS: BP 112/60
[2022-07-12] MEDS: LOVASTATIN 20 MG TABLET PO SCH (16:53)
[2022-07-12] MEDS: BENZTROPINE MESYLATE 2 MG TABLET PO SCH (20:25)
[2022-07-12] MEDS: OXYBUTYNIN CHLORIDE 5 MG TABLET PO SCH (20:25)
[2022-07-12] MEDS: DiphenhydrAMINE HCL 25 MG CAPSULE PO SCH (20:25)
[2022-07-12] MEDS: DIVALPROEX SODIUM 500 MG ER TABLET PO SCH (20:25)
[2022-07-13] MEDS: LEVOTHYROXINE SODIUM 100 MCG TABLET PO SCH (06:35)
[2022-07-13] MEDS: ASPIRIN 81 MG DR TABLET PO SCH (08:31)
[2022-07-13] MEDS: OMEPRAZOLE 20 MG CAPSULE PO SCH (08:31)
[2022-07-13] MEDS: HALOPERIDOL 10 MG TABLET PO SCH ×2 (08:31→20:30)
[2022-07-13] MEDS: SERTRALINE HCL 100 MG TABLET PO SCH ×2 (08:32→16:43)
[2022-07-13] MEDS: OLANZapine 7.5 MG TABLET PO SCH ×2 (08:32→16:43)
[2022-07-13 08:37] VITALS: BP 136/71
[2022-07-13] MEDS: LOVASTATIN 20 MG TABLET PO SCH (16:42)
[2022-07-13] MEDS: OXYBUTYNIN CHLORIDE 5 MG TABLET PO SCH (20:30)
[2022-07-13] MEDS: DIVALPROEX SODIUM 500 MG ER TABLET PO SCH (20:30)
[2022-07-13] MEDS: BENZTROPINE MESYLATE 2 MG TABLET PO SCH (20:30)
[2022-07-13] MEDS: DiphenhydrAMINE HCL 25 MG CAPSULE PO SCH (20:30)
[2022-07-13 20:33] VITALS: BP 110/62
[2022-07-14] MEDS: LEVOTHYROXINE SODIUM 100 MCG TABLET PO SCH (06:19)
[2022-07-14 08:15] VITALS: BP 119/60
[2022-07-14] MEDS: ASPIRIN 81 MG DR TABLET PO SCH (08:46)
[2022-07-14] MEDS: OLANZapine 7.5 MG TABLET PO SCH ×2 (08:47→17:08)
[2022-07-14] MEDS: HALOPERIDOL 10 MG TABLET PO SCH ×2 (08:47→21:32)
[2022-07-14] MEDS: OMEPRAZOLE 20 MG CAPSULE PO SCH (08:47)
[2022-07-14] MEDS: SERTRALINE HCL 100 MG TABLET PO SCH ×2 (08:47→17:08)
[2022-07-14] MEDS: LOVASTATIN 20 MG TABLET PO SCH (17:08)
[2022-07-14 20:18] VITALS: BP 138/64
[2022-07-14] MEDS: OXYBUTYNIN CHLORIDE 5 MG TABLET PO SCH (21:32)
[2022-07-14] MEDS: DiphenhydrAMINE HCL 25 MG CAPSULE PO SCH (21:32)
[2022-07-14] MEDS: BENZTROPINE MESYLATE 2 MG TABLET PO SCH (21:32)
[2022-07-14] MEDS: DIVALPROEX SODIUM 500 MG ER TABLET PO SCH (21:32)
[2022-07-15] MEDS: LEVOTHYROXINE SODIUM 100 MCG TABLET PO SCH (06:39)
[2022-07-15 08:14] VITALS: BP 145/69
[2022-07-15] MEDS: SERTRALINE HCL 100 MG TABLET PO SCH ×2 (08:24→16:29)
[2022-07-15] MEDS: OLANZapine 7.5 MG TABLET PO SCH ×2 (08:25→16:30)
[2022-07-15] MEDS: HALOPERIDOL 10 MG TABLET PO SCH ×2 (08:25→20:34)
[2022-07-15] MEDS: ASPIRIN 81 MG DR TABLET PO SCH (08:25)
[2022-07-15] MEDS: OMEPRAZOLE 20 MG CAPSULE PO SCH (08:28)
[2022-07-15] MEDS: LOVASTATIN 20 MG TABLET PO SCH (16:29)
[2022-07-15] MEDS: OXYBUTYNIN CHLORIDE 5 MG TABLET PO SCH (20:33)
[2022-07-15] MEDS: DIVALPROEX SODIUM 500 MG ER TABLET PO SCH (20:33)
[2022-07-15] MEDS: BENZTROPINE MESYLATE 2 MG TABLET PO SCH (20:34)
[2022-07-15] MEDS: DiphenhydrAMINE HCL 25 MG CAPSULE PO SCH (20:34)
[2022-07-15 20:54] VITALS: BP 142/73
[2022-07-16] MEDS: LEVOTHYROXINE SODIUM 100 MCG TABLET PO SCH (06:52)
[2022-07-16] MEDS: HALOPERIDOL 10 MG TABLET PO SCH ×2 (08:18→20:50)
[2022-07-16] MEDS: ASPIRIN 81 MG DR TABLET PO SCH (08:18)
[2022-07-16] MEDS: SERTRALINE HCL 100 MG TABLET PO SCH ×2 (08:18→16:40)
[2022-07-16] MEDS: OLANZapine 7.5 MG TABLET PO SCH ×2 (08:18→16:40)
[2022-07-16] MEDS: OMEPRAZOLE 20 MG CAPSULE PO SCH (08:18)
[2022-07-16 08:22] VITALS: BP 128/67
[2022-07-16] MEDS: LOVASTATIN 20 MG TABLET PO SCH (16:39)
[2022-07-16 20:11] VITALS: BP 127/70
[2022-07-16] MEDS: DIVALPROEX SODIUM 500 MG ER TABLET PO SCH (20:49)
[2022-07-16] MEDS: OXYBUTYNIN CHLORIDE 5 MG TABLET PO SCH (20:50)
[2022-07-16] MEDS: DiphenhydrAMINE HCL 25 MG CAPSULE PO SCH (20:50)
[2022-07-16] MEDS: BENZTROPINE MESYLATE 2 MG TABLET PO SCH (20:50)
[2022-07-17] MEDS: LEVOTHYROXINE SODIUM 100 MCG TABLET PO SCH (06:37)
[2022-07-17 08:07] VITALS: BP 124/62
[2022-07-17] MEDS: SERTRALINE HCL 100 MG TABLET PO SCH ×2 (08:20→16:18)
[2022-07-17] MEDS: OMEPRAZOLE 20 MG CAPSULE PO SCH (08:20)
[2022-07-17] MEDS: OLANZapine 7.5 MG TABLET PO SCH ×2 (08:20→16:18)
[2022-07-17] MEDS: HALOPERIDOL 10 MG TABLET PO SCH ×2 (08:20→20:23)
[2022-07-17] MEDS: ASPIRIN 81 MG DR TABLET PO SCH (08:20)
[2022-07-17] MEDS: LOVASTATIN 20 MG TABLET PO SCH (16:17)
[2022-07-17] MEDS: BENZTROPINE MESYLATE 2 MG TABLET PO SCH (20:22)
[2022-07-17] MEDS: OXYBUTYNIN CHLORIDE 5 MG TABLET PO SCH (20:22)
[2022-07-17] MEDS: DIVALPROEX SODIUM 500 MG ER TABLET PO SCH (20:23)
[2022-07-17] MEDS: DiphenhydrAMINE HCL 25 MG CAPSULE PO SCH (20:23)
[2022-07-17 20:34] VITALS: BP 122/62
[2022-07-18] MEDS: LEVOTHYROXINE SODIUM 100 MCG TABLET PO SCH (06:22)
[2022-07-18 08:04] VITALS: BP 136/63
[2022-07-18] MEDS: ASPIRIN 81 MG DR TABLET PO SCH (08:21)
[2022-07-18] MEDS: OLANZapine 7.5 MG TABLET PO SCH ×2 (08:23→16:29)
[2022-07-18] MEDS: HALOPERIDOL 10 MG TABLET PO SCH ×2 (08:23→20:13)
[2022-07-18] MEDS: SERTRALINE HCL 100 MG TABLET PO SCH ×2 (08:23→16:29)
[2022-07-18] MEDS: OMEPRAZOLE 20 MG CAPSULE PO SCH (08:23)
[2022-07-18] MEDS: LOVASTATIN 20 MG TABLET PO SCH (16:29)
[2022-07-18 20:07] VITALS: BP 124/56
[2022-07-18] MEDS: DiphenhydrAMINE HCL 25 MG CAPSULE PO SCH (20:12)
[2022-07-18] MEDS: DIVALPROEX SODIUM 500 MG ER TABLET PO SCH (20:13)
[2022-07-18] MEDS: OXYBUTYNIN CHLORIDE 5 MG TABLET PO SCH (20:13)
[2022-07-18] MEDS: BENZTROPINE MESYLATE 2 MG TABLET PO SCH (20:13)
[2022-07-19] MEDS: LEVOTHYROXINE SODIUM 100 MCG TABLET PO SCH (06:17)
[2022-07-19 08:12] VITALS: BP 140/74
[2022-07-19] MEDS: HALOPERIDOL 10 MG TABLET PO SCH ×2 (08:41→20:32)
[2022-07-19] MEDS: OMEPRAZOLE 20 MG CAPSULE PO SCH (08:41)
[2022-07-19] MEDS: OLANZapine 7.5 MG TABLET PO SCH ×2 (08:41→16:36)
[2022-07-19] MEDS: ASPIRIN 81 MG DR TABLET PO SCH (08:41)
[2022-07-19] MEDS: SERTRALINE HCL 100 MG TABLET PO SCH ×2 (08:41→16:35)
[2022-07-19] MEDS: LOVASTATIN 20 MG TABLET PO SCH (16:35)
[2022-07-19 20:05] VITALS: BP 130/81
[2022-07-19] MEDS: DIVALPROEX SODIUM 500 MG ER TABLET PO SCH (20:31)
[2022-07-19] MEDS: OXYBUTYNIN CHLORIDE 5 MG TABLET PO SCH (20:31)
[2022-07-19] MEDS: BENZTROPINE MESYLATE 2 MG TABLET PO SCH (20:31)
[2022-07-19] MEDS: DiphenhydrAMINE HCL 25 MG CAPSULE PO SCH (20:31)
[2022-07-20] MEDS: LEVOTHYROXINE SODIUM 100 MCG TABLET PO SCH (06:32)
[2022-07-20 08:37] VITALS: BP 126/71
[2022-07-20] MEDS: HALOPERIDOL 10 MG TABLET PO SCH ×2 (08:44→20:13)
[2022-07-20] MEDS: ASPIRIN 81 MG DR TABLET PO SCH (08:44)
[2022-07-20] MEDS: OLANZapine 7.5 MG TABLET PO SCH ×2 (08:45→17:03)
[2022-07-20] MEDS: OMEPRAZOLE 20 MG CAPSULE PO SCH (08:45)
[2022-07-20] MEDS: SERTRALINE HCL 100 MG TABLET PO SCH ×2 (08:45→17:02)
[2022-07-20] MEDS: BuPROPion HCL 150 MG SR TABLET PO SCH (10:48)
[2022-07-20] MEDS: LOVASTATIN 20 MG TABLET PO SCH (17:02)
[2022-07-20] MEDS: DIVALPROEX SODIUM 500 MG ER TABLET PO SCH (20:13)
[2022-07-20] MEDS: OXYBUTYNIN CHLORIDE 5 MG TABLET PO SCH (20:13)
[2022-07-20] MEDS: DiphenhydrAMINE HCL 25 MG CAPSULE PO SCH (20:13)
[2022-07-20] MEDS: BENZTROPINE MESYLATE 2 MG TABLET PO SCH (20:14)
[2022-07-20 21:52] VITALS: BP 146/73
[2022-07-21] MEDS: LEVOTHYROXINE SODIUM 100 MCG TABLET PO SCH (06:36)
[2022-07-21 08:14] VITALS: BP 112/71
[2022-07-21] MEDS: BuPROPion HCL 150 MG SR TABLET PO SCH (08:50)
[2022-07-21] MEDS: SERTRALINE HCL 100 MG TABLET PO SCH ×2 (08:50→16:45)
[2022-07-21] MEDS: HALOPERIDOL 10 MG TABLET PO SCH ×2 (08:50→20:33)
[2022-07-21] MEDS: ASPIRIN 81 MG DR TABLET PO SCH (08:50)
[2022-07-21] MEDS: OMEPRAZOLE 20 MG CAPSULE PO SCH (08:50)
[2022-07-21] MEDS: OLANZapine 7.5 MG TABLET PO SCH ×2 (08:50→16:45)
[2022-07-21] MEDS: LOVASTATIN 20 MG TABLET PO SCH (16:45)
[2022-07-21 20:29] VITALS: BP 128/70
[2022-07-21] MEDS: BENZTROPINE MESYLATE 2 MG TABLET PO SCH (20:33)
[2022-07-21] MEDS: DiphenhydrAMINE HCL 25 MG CAPSULE PO SCH (20:33)
[2022-07-21] MEDS: OXYBUTYNIN CHLORIDE 5 MG TABLET PO SCH (20:33)
[2022-07-21] MEDS: DIVALPROEX SODIUM 500 MG ER TABLET PO SCH (20:33)
[2022-07-22] MEDS: LEVOTHYROXINE SODIUM 100 MCG TABLET PO SCH (06:40)
[2022-07-22 08:09] VITALS: BP 133/70
[2022-07-22] MEDS: SERTRALINE HCL 100 MG TABLET PO SCH ×2 (09:33→18:13)
[2022-07-22] MEDS: OLANZapine 7.5 MG TABLET PO SCH ×2 (09:33→18:13)
[2022-07-22] MEDS: OMEPRAZOLE 20 MG CAPSULE PO SCH (09:33)
[2022-07-22] MEDS: ASPIRIN 81 MG DR TABLET PO SCH (09:34)
[2022-07-22] MEDS: HALOPERIDOL 10 MG TABLET PO SCH ×2 (09:34→20:04)
[2022-07-22] MEDS: BuPROPion HCL 150 MG SR TABLET PO SCH (10:34)
[2022-07-22] MEDS: LOVASTATIN 20 MG TABLET PO SCH (18:12)
[2022-07-22] MEDS: DIVALPROEX SODIUM 500 MG ER TABLET PO SCH (20:04)
[2022-07-22] MEDS: DiphenhydrAMINE HCL 25 MG CAPSULE PO SCH (20:04)
[2022-07-22] MEDS: OXYBUTYNIN CHLORIDE 5 MG TABLET PO SCH (20:05)
[2022-07-22] MEDS: BENZTROPINE MESYLATE 2 MG TABLET PO SCH (20:05)
[2022-07-22 21:33] VITALS: BP 117/62
[2022-07-23] MEDS: LEVOTHYROXINE SODIUM 100 MCG TABLET PO SCH (06:19)
[2022-07-23 08:20] VITALS: BP 123/71
[2022-07-23] MEDS: BuPROPion HCL 150 MG SR TABLET PO SCH (08:32)
[2022-07-23] MEDS: OLANZapine 7.5 MG TABLET PO SCH ×2 (08:32→16:47)
[2022-07-23] MEDS: SERTRALINE HCL 100 MG TABLET PO SCH ×2 (08:32→16:48)
[2022-07-23] MEDS: ASPIRIN 81 MG DR TABLET PO SCH (08:32)
[2022-07-23] MEDS: OMEPRAZOLE 20 MG CAPSULE PO SCH (08:32)
[2022-07-23] MEDS: HALOPERIDOL 10 MG TABLET PO SCH ×2 (08:32→20:16)
[2022-07-23] MEDS: LOVASTATIN 20 MG TABLET PO SCH (16:47)
[2022-07-23] MEDS ORDERED: MUPIROCIN CALCIUM 2% 22 GM OINTMENT NASAL SCH (17:00)
[2022-07-23] MEDS: DiphenhydrAMINE HCL 25 MG CAPSULE PO SCH (20:15)
[2022-07-23] MEDS: DIVALPROEX SODIUM 500 MG ER TABLET PO SCH (20:15)
[2022-07-23] MEDS: OXYBUTYNIN CHLORIDE 5 MG TABLET PO SCH (20:15)
[2022-07-23] MEDS: BENZTROPINE MESYLATE 2 MG TABLET PO SCH (20:16)
[2022-07-23 20:26] VITALS: BP 113/71
[2022-07-24] MEDS: LEVOTHYROXINE SODIUM 100 MCG TABLET PO SCH (06:19)
[2022-07-24 08:43] VITALS: BP 124/67
[2022-07-24] MEDS: ASPIRIN 81 MG DR TABLET PO SCH (09:16)
[2022-07-24] MEDS: OMEPRAZOLE 20 MG CAPSULE PO SCH (09:16)
[2022-07-24] MEDS: SERTRALINE HCL 100 MG TABLET PO SCH ×2 (09:17→16:42)
[2022-07-24] MEDS: MUPIROCIN CALCIUM 2% 22 GM OINTMENT NASAL SCH ×2 (09:17→16:45)
[2022-07-24] MEDS: HALOPERIDOL 10 MG TABLET PO SCH ×2 (09:17→21:26)
[2022-07-24] MEDS: OLANZapine 7.5 MG TABLET PO SCH ×2 (09:17→16:42)
[2022-07-24] MEDS: BuPROPion HCL 150 MG SR TABLET PO SCH (09:17)
[2022-07-24] MEDS: LOVASTATIN 20 MG TABLET PO SCH (16:41)
[2022-07-24 20:23] VITALS: BP 142/80
[2022-07-24] MEDS: OXYBUTYNIN CHLORIDE 5 MG TABLET PO SCH (21:26)
[2022-07-24] MEDS: DiphenhydrAMINE HCL 25 MG CAPSULE PO SCH (21:26)
[2022-07-24] MEDS: BENZTROPINE MESYLATE 2 MG TABLET PO SCH (21:26)
[2022-07-24] MEDS: DIVALPROEX SODIUM 500 MG ER TABLET PO SCH (21:26)
[2022-07-25] MEDS: LEVOTHYROXINE SODIUM 100 MCG TABLET PO SCH (06:36)
[2022-07-25] MEDS: OMEPRAZOLE 20 MG CAPSULE PO SCH (08:07)
[2022-07-25] MEDS: ASPIRIN 81 MG DR TABLET PO SCH (08:07)
[2022-07-25] MEDS: OLANZapine 7.5 MG TABLET PO SCH ×2 (08:07→17:04)
[2022-07-25] MEDS: SERTRALINE HCL 100 MG TABLET PO SCH ×2 (08:07→17:04)
[2022-07-25] MEDS: BuPROPion HCL 150 MG SR TABLET PO SCH (08:07)
[2022-07-25] MEDS: HALOPERIDOL 10 MG TABLET PO SCH ×2 (08:07→20:51)
[2022-07-25] MEDS: MUPIROCIN CALCIUM 2% 22 GM OINTMENT NASAL SCH ×2 (08:22→17:04)
[2022-07-25 08:31] VITALS: BP 121/66
[2022-07-25 08:50] VITALS: BP 121/66
[2022-07-25] MEDS: LOVASTATIN 20 MG TABLET PO SCH (17:03)
[2022-07-25] MEDS: BENZTROPINE MESYLATE 2 MG TABLET PO SCH (20:51)
[2022-07-25] MEDS: DIVALPROEX SODIUM 500 MG ER TABLET PO SCH (20:51)
[2022-07-25] MEDS: DiphenhydrAMINE HCL 25 MG CAPSULE PO SCH (20:51)
[2022-07-25] MEDS: OXYBUTYNIN CHLORIDE 5 MG TABLET PO SCH (20:51)
[2022-07-25 21:46] VITALS: BP 118/78
[2022-07-26] MEDS: LEVOTHYROXINE SODIUM 100 MCG TABLET PO SCH (06:49)
[2022-07-26 08:03] VITALS: BP 134/86
[2022-07-26] MEDS: MUPIROCIN CALCIUM 2% 22 GM OINTMENT NASAL SCH ×2 (08:05→16:47)
[2022-07-26] MEDS: BuPROPion HCL 150 MG SR TABLET PO SCH (08:06)
[2022-07-26] MEDS: OMEPRAZOLE 20 MG CAPSULE PO SCH (08:06)
[2022-07-26] MEDS: OLANZapine 7.5 MG TABLET PO SCH ×2 (08:06→17:11)
[2022-07-26] MEDS: SERTRALINE HCL 100 MG TABLET PO SCH ×2 (08:06→17:11)
[2022-07-26] MEDS: HALOPERIDOL 10 MG TABLET PO SCH ×2 (08:06→20:40)
[2022-07-26] MEDS: ASPIRIN 81 MG DR TABLET PO SCH (08:06)
[2022-07-26] MEDS: LOVASTATIN 20 MG TABLET PO SCH (17:11)
[2022-07-26] MEDS: BENZTROPINE MESYLATE 2 MG TABLET PO SCH (20:40)
[2022-07-26] MEDS: DIVALPROEX SODIUM 500 MG ER TABLET PO SCH (20:40)
[2022-07-26] MEDS: DiphenhydrAMINE HCL 25 MG CAPSULE PO SCH (20:40)
[2022-07-26] MEDS: OXYBUTYNIN CHLORIDE 5 MG TABLET PO SCH (20:40)
[2022-07-26 21:50] VITALS: BP 120/77
[2022-07-27] MEDS: LEVOTHYROXINE SODIUM 100 MCG TABLET PO SCH (06:03)
[2022-07-27 08:41] VITALS: BP 126/66
[2022-07-27] MEDS: ASPIRIN 81 MG DR TABLET PO SCH (08:41)
[2022-07-27] MEDS: SERTRALINE HCL 100 MG TABLET PO SCH ×2 (08:41→17:16)
[2022-07-27] MEDS: OLANZapine 7.5 MG TABLET PO SCH ×2 (08:41→17:17)
[2022-07-27] MEDS: BuPROPion HCL 150 MG SR TABLET PO SCH (08:44)
[2022-07-27] MEDS: HALOPERIDOL 10 MG TABLET PO SCH ×2 (08:44→20:34)
[2022-07-27] MEDS: OMEPRAZOLE 20 MG CAPSULE PO SCH (08:44)
[2022-07-27] MEDS: MUPIROCIN CALCIUM 2% 22 GM OINTMENT NASAL SCH ×2 (08:45→18:01)
[2022-07-27] MEDS: LOVASTATIN 20 MG TABLET PO SCH (17:16)
[2022-07-27] MEDS: DIVALPROEX SODIUM 500 MG ER TABLET PO SCH (20:33)
[2022-07-27] MEDS: DiphenhydrAMINE HCL 25 MG CAPSULE PO SCH (20:33)
[2022-07-27] MEDS: OXYBUTYNIN CHLORIDE 5 MG TABLET PO SCH (20:34)
[2022-07-27] MEDS: BENZTROPINE MESYLATE 2 MG TABLET PO SCH (20:34)
[2022-07-27 20:41] VITALS: BP 128/68
[2022-07-28] MEDS: LEVOTHYROXINE SODIUM 100 MCG TABLET PO SCH (06:01)
[2022-07-28] MEDS: MUPIROCIN CALCIUM 2% 22 GM OINTMENT NASAL SCH ×2 (08:01→16:33)
[2022-07-28] MEDS: OMEPRAZOLE 20 MG CAPSULE PO SCH (08:02)
[2022-07-28] MEDS: OLANZapine 7.5 MG TABLET PO SCH ×2 (08:02→16:33)
[2022-07-28] MEDS: HALOPERIDOL 10 MG TABLET PO SCH ×2 (08:02→20:33)
[2022-07-28] MEDS: BuPROPion HCL 150 MG SR TABLET PO SCH (08:02)
[2022-07-28] MEDS: SERTRALINE HCL 100 MG TABLET PO SCH ×2 (08:02→16:33)
[2022-07-28] MEDS: ASPIRIN 81 MG DR TABLET PO SCH (08:02)
[2022-07-28 08:27] VITALS: BP 115/69
[2022-07-28] MEDS: LOVASTATIN 20 MG TABLET PO SCH (16:33)
[2022-07-28] MEDS: DIVALPROEX SODIUM 500 MG ER TABLET PO SCH (20:33)
[2022-07-28] MEDS: BENZTROPINE MESYLATE 2 MG TABLET PO SCH (20:33)
[2022-07-28] MEDS: DiphenhydrAMINE HCL 25 MG CAPSULE PO SCH (20:33)
[2022-07-28] MEDS: OXYBUTYNIN CHLORIDE 5 MG TABLET PO SCH (20:33)
[2022-07-28 20:52] VITALS: BP 147/81
[2022-07-29] MEDS: LEVOTHYROXINE SODIUM 100 MCG TABLET PO SCH (06:29)
[2022-07-29 08:30] VITALS: BP 133/62
[2022-07-29] MEDS: OMEPRAZOLE 20 MG CAPSULE PO SCH (08:52)
[2022-07-29] MEDS: OLANZapine 7.5 MG TABLET PO SCH ×2 (08:52→16:42)
[2022-07-29] MEDS: ASPIRIN 81 MG DR TABLET PO SCH (08:52)
[2022-07-29] MEDS: SERTRALINE HCL 100 MG TABLET PO SCH ×2 (08:52→16:42)
[2022-07-29] MEDS: HALOPERIDOL 10 MG TABLET PO SCH ×2 (08:52→20:23)
[2022-07-29] MEDS: BuPROPion HCL 150 MG SR TABLET PO SCH (08:52)
[2022-07-29] MEDS: LOVASTATIN 20 MG TABLET PO SCH (16:42)
[2022-07-29 20:08] VITALS: BP 127/69
[2022-07-29] MEDS: DiphenhydrAMINE HCL 25 MG CAPSULE PO SCH (20:23)
[2022-07-29] MEDS: DIVALPROEX SODIUM 500 MG ER TABLET PO SCH (20:23)
[2022-07-29] MEDS: BENZTROPINE MESYLATE 2 MG TABLET PO SCH (20:23)
[2022-07-29] MEDS: OXYBUTYNIN CHLORIDE 5 MG TABLET PO SCH (20:23)
[2022-07-30] MEDS: LEVOTHYROXINE SODIUM 100 MCG TABLET PO SCH (06:42)
[2022-07-30 08:01] VITALS: BP 136/80
[2022-07-30] MEDS: OLANZapine 7.5 MG TABLET PO SCH ×2 (08:54→17:08)
[2022-07-30] MEDS: SERTRALINE HCL 100 MG TABLET PO SCH ×2 (08:54→17:08)
[2022-07-30] MEDS: HALOPERIDOL 10 MG TABLET PO SCH ×2 (08:54→21:38)
[2022-07-30] MEDS: BuPROPion HCL 150 MG SR TABLET PO SCH (08:54)
[2022-07-30] MEDS: OMEPRAZOLE 20 MG CAPSULE PO SCH (08:54)
[2022-07-30] MEDS: ASPIRIN 81 MG DR TABLET PO SCH (08:54)
[2022-07-30] MEDS: LOVASTATIN 20 MG TABLET PO SCH (17:07)
[2022-07-30 20:15] VITALS: BP 128/61
[2022-07-30] MEDS: DiphenhydrAMINE HCL 25 MG CAPSULE PO SCH (21:38)
[2022-07-30] MEDS: OXYBUTYNIN CHLORIDE 5 MG TABLET PO SCH (21:38)
[2022-07-30] MEDS: BENZTROPINE MESYLATE 2 MG TABLET PO SCH (21:38)
[2022-07-30] MEDS: DIVALPROEX SODIUM 500 MG ER TABLET PO SCH (21:38)
[2022-07-31] MEDS: LEVOTHYROXINE SODIUM 100 MCG TABLET PO SCH (06:18)
[2022-07-31 08:12] VITALS: BP 122/65
[2022-07-31] MEDS: SERTRALINE HCL 100 MG TABLET PO SCH (08:16)
[2022-07-31] MEDS: BuPROPion HCL 150 MG SR TABLET PO SCH (08:17)
[2022-07-31] MEDS: OMEPRAZOLE 20 MG CAPSULE PO SCH (08:17)
[2022-07-31] MEDS: ASPIRIN 81 MG DR TABLET PO SCH (08:17)
[2022-07-31] MEDS: OLANZapine 7.5 MG TABLET PO SCH (08:17)
[2022-07-31] MEDS: HALOPERIDOL 10 MG TABLET PO SCH (08:17)
[2022-07-31] MEDS ORDERED: HALO10TA21 PO (10:54)
[2022-07-31] MEDS ORDERED: BUPR-72 PO (10:54)
[2022-08-01] MEDS ORDERED: SERT-440 PO (16:27)
[2022-08-01] MEDS ORDERED: LEVO100 PO (16:27)
[2022-08-01] MEDS ORDERED: BENZ2TAB71 PO (16:27)
[2022-08-01] MEDS ORDERED: HALO10TA21 PO (16:27)
[2022-08-01] MEDS ORDERED: OXYB5TAB20 PO (16:27)
[2022-08-01] MEDS ORDERED: OLAN7.5T22 PO (16:27)
[2022-08-01] MEDS ORDERED: DIPH25CA85 PO (16:27)
[2022-08-01] MEDS ORDERED: BUPR-113 PO (16:27)
== END 2022-07-31 20:06 | disposition home or self-care (01) | DRG 750 ==
LOC: B2S 14:48
PROVIDERS: ADMIT Psychiatry & Neurology Child & Adolescent Psychiatry; ATTEND Psychiatry & Neurology Child & Adolescent Psychiatry
PROC: 3E0234Z Introduction of Serum, Toxoid and Vaccine into Muscle, Percutaneous Approach (ICD-10-PCS; principal; 2022-06-09)
DX: F20.0 Paranoid schizophrenia (principal); E11.9 Type 2 diabetes mellitus without complications; D64.9 Anemia, unspecified; E03.9 Hypothyroidism, unspecified; E78.5 Hyperlipidemia, unspecified; I10 Essential (primary) hypertension; Z20.822 Contact with and (suspected) exposure to COVID-19; K21.9 Gastro-esophageal reflux disease without esophagitis; R32 Unspecified urinary incontinence; Z79.82 Long term (current) use of aspirin; Z79.899 Other long term (current) drug therapy
CPT/HCPCS: 80053; 80061; 80164; 80307; 81003; 82140; 83036; 84436; 84439; 84443; 85025; 86592; 87081; 90732; G0480

== ENCOUNTER 2022-10-13 11:47 | Inpatient (IN) | payer MEDICARE, MEDICAID ==
[~2022-10-13] VITALS: Ht 172.7 cm; Wt 103.0 kg
[~2022-10-13 11:47] MED LIST changes: +ASPI-1444 PO; +BENZ2TAB71 PO; +BUPR-113 PO; +BUPR-72 PO; +DIPH25CA85 PO; +DIPH50CA35 PO; +DIVA500T53 PO; -ESOM20CA31 GT; +HALO10TA21 PO; -HALO1TAB19 GT; +LEVO100 PO; -LISI5TAB21 PO; +LOVA20TA73 PO; +OLAN15TA36 PO; +OLAN7.5T22 PO; +OMEP20CA13 PO; +OXYB-34 PO; +OXYB5TAB20 PO; +SERT-440 PO
[2022-10-13 15:01] LABS: GLUCOMETER DEV NAME(LOC) POC.BV; POC SARS-COV2 AG, FIA NEGATIVE (NEGATIVE)
[2022-10-13 15:35] VITALS: BP 131/85; PULSE 82; RESP 18; TEMP 97.9; O2SAT 95
[2022-10-13 20:15] VITALS: BP 131/82; PULSE 80; RESP 19; TEMP 97.6; O2SAT 95
[2022-10-14 07:55] LABS: BASOPHILS % (AUTO) 0.3 % (0.0-2.0); EOSINOPHILS % (AUTO) 3.4 % (1.0-6.0); HEMATOCRIT 40.7 % (41-53); HEMOGLOBIN 13.5 g/dL (13.5-17.5); LYMPHOCYTES # (AUTO) 2.5 K/uL (1.0-4.8); LYMPHOCYTES % (AUTO) 29.2 % (22.0-44.0); MEAN CORPUSCULAR HEMOGLOBIN 29.1 pg (26.0-34.0); MEAN CORPUSCULAR HGB CONC 33.1 G/dL (31.0-37.0); MEAN CORPUSCULAR VOLUME 88 fL (80-100); MONOCYTES # (AUTO) 0.8 K/uL (0.1-1.0); MONOCYTES % (AUTO) 9.1 % (2.0-9.0); PLATELET COUNT (AUTO) 193 K/uL (150-450); RED BLOOD CELL COUNT(AUTO) 4.64 MIL/uL (4.50-5.90); RED CELL DISTRIBUTION WIDTH 15.9 % (11.5-14.5); WHITE BLOOD COUNT (AUTO) 8.6 K/uL (4.5-11.0)
[2022-10-14 08:45] LABS: ALANINE AMINOTRANSFERASE 43 U/L (12-78); ALBUMIN 3.4 g/dL (3.4-5.0); ALKALINE PHOSPHATASE 149 U/L (46-116); ANION GAP 8 mmol/L (8-16); ASPARTATE AMINOTRANSFERASE 27 U/L (15-37); BILIRUBIN,TOTAL 0.3 mg/dL (0.1-1.0); CALCIUM, TOTAL 8.7 mg/dL (8.8-10.5); CARBON DIOXIDE 29 mmol/L (22-29); CHLORIDE 101 mmol/L (98-107); CHOL/HDL RATIO 6.5 (4.2-7.3); CHOLESTEROL 272 mg/dL (131-200); CREATININE 0.67 mg/dL (0.60-1.30); GLOMERULAR FILTR. RATE CALC > 60 mL/min (>60); GLUCOSE,RANDOM 112 mg/dL (70-110); HDL CHOLESTEROL 42 mg/dL (40-60); LDL CHOL (CALC.) 204 mg/dL (0-130); SODIUM SERUM 138 mmol/L (136-145); TOTAL PROTEIN, SERUM 7.4 g/dL (6.4-8.2); TRIGLYCERIDES 131 mg/dL (15-150); UREA NITROGEN, BLOOD 16 mg/dL (7-18)
[2022-10-14 08:51] VITALS: BP 123/74; PULSE 74; RESP 19; TEMP 97.9; O2SAT 95
[2022-10-14] MEDS ORDERED: LORazepam 2 MG TABLET PO PRN (09:00)
[2022-10-14] MEDS ORDERED: HALOPERIDOL 5 MG TABLET PO PRN (09:00)
[2022-10-14] MEDS ORDERED: ZOLPIDEM TARTRATE 10 MG TABLET PO PRN (09:00)
[2022-10-14 09:09] LABS: FREE T4 (FREE THYROXINE) 0.82 ng/dL (0.76-1.46); THYROID STIMULATING HORMONE 2.92 uIU/mL (0.36-3.74)
[2022-10-14] MEDS: ASPIRIN 81 MG CHEWABLE TABLET PO SCH (10:28)
[2022-10-14] MEDS: OMEPRAZOLE 20 MG CAPSULE PO SCH (10:28)
[2022-10-14] MEDS: LOSARTAN POTASSIUM 25 MG TABLET PO SCH (12:58)
[2022-10-14] MEDS ORDERED: LOPERAMIDE HCL 2 MG CAPSULE PO PRN (14:00)
[2022-10-14] MEDS ORDERED: CloNIDine HCL 0.1 MG TABLET PO PRN (14:00)
[2022-10-14] MEDS ORDERED: NICOTINE 14 MG/24 HOUR PATCH TD PRN (14:00)
[2022-10-14] MEDS ORDERED: ACETAMINOPHEN 325 MG TABLET PO PRN (14:00)
[2022-10-14] MEDS ORDERED: ONDANSETRON HCL 4 MG TABLET PO PRN (14:00)
[2022-10-14] MEDS ORDERED: MAGNESIUM HYDROXIDE SUSPENSION 30 ML UDCUP PO PRN (14:00)
[2022-10-14] MEDS ORDERED: MAG HYDROX/AL HYDROX/SIMETH ES 30 ML SUSPENSION UDCUP PO PRN (14:00)
[2022-10-14] MEDS ORDERED: GuaiFENesin/D-METHORPHAN [SUGAR-FREE] 200-20MG/10 ML SYRUP UDCUP PO PRN (14:00)
[2022-10-14] MEDS ORDERED: PETROLATUM,WHITE 28 GM JELLY TP PRN (14:00)
[2022-10-14] MEDS ORDERED: IBUPROFEN 400 MG TABLET PO PRN (14:00)
[2022-10-14] MEDS ORDERED: ALBUTEROL SULFATE HFA 90 MCG/PUFF 8 GM INHALER IH PRN (14:00)
[2022-10-14] MEDS ORDERED: DOCUSATE SODIUM 100 MG CAPSULE PO PRN (14:00)
[2022-10-14] MEDS: BuPROPion HCL XL 150 MG ER TABLET PO SCH (14:06)
[2022-10-14] MEDS: OLANZapine 10 MG TABLET PO SCH (16:39)
[2022-10-14] MEDS: HALOPERIDOL 10 MG TABLET PO SCH (16:39)
[2022-10-14] MEDS: MetFORMIN HCL 500 MG TABLET PO SCH (16:39)
[2022-10-14] MEDS: DIVALPROEX SODIUM 500 MG DR TABLET PO SCH (16:39)
[2022-10-14] MEDS: LOVASTATIN 20 MG TABLET PO SCH (16:39)
[2022-10-14] MEDS: SERTRALINE HCL 100 MG TABLET PO SCH (16:39)
[2022-10-14 17:11] LABS: GLUCOMETER DEV NAME(LOC) BV2S.; GLUCOSE,POINT OF CARE 112 MG/DL (70-110)
[2022-10-14 20:18] VITALS: BP 141/75; PULSE 67; RESP 18; TEMP 97.8; O2SAT 94
[2022-10-14] MEDS: BENZTROPINE MESYLATE 2 MG TABLET PO SCH (20:45)
[2022-10-14] MEDS: OXYBUTYNIN CHLORIDE 5 MG ER TABLET PO SCH (20:45)
[2022-10-14] MEDS ORDERED: OXYBUTYNIN CHLORIDE 5 MG ER TABLET PO SCH (21:00)
[2022-10-15 03:06] LABS: HEPATITIS C AB (EIA) Non Reactive (Non Reactive)
[2022-10-15] MEDS: MetFORMIN HCL 500 MG TABLET PO SCH ×2 (07:14→17:16)
[2022-10-15] MEDS: LEVOTHYROXINE SODIUM 100 MCG TABLET PO SCH (07:14)
[2022-10-15] MEDS: ASPIRIN 81 MG CHEWABLE TABLET PO SCH (07:16)
[2022-10-15 07:22] LABS: GLUCOMETER DEV NAME(LOC) BV2S.; GLUCOSE,POINT OF CARE 109 MG/DL (70-110)
[2022-10-15 08:23] LABS: APPEARANCE,URINE CLEAR (CLEAR); BILIRUBIN,URINE NEGATIVE (NEGATIVE); COLOR,URINE LIGHT YELLOW (YELLOW); GLUCOSE, URINE (UA) NEGATIVE (NEGATIVE); KETONES,URINE NEGATIVE (NEGATIVE); LEUKOCYTE ESTERASE ,URINE NEGATIVE (NEGATIVE); NITRATE,URINE NEGATIVE (NEGATIVE); OCCULT BLOOD,URINE NEGATIVE (NEGATIVE); PROTEIN,URINE NEGATIVE (NEGATIVE); SPECIFIC GRAVITIY, URINE 1.017 (1.003-1.030); UROBILINOGEN,URINE <=1.0 mg/dL (<=1.0)
[2022-10-15 08:30] LABS: ALCOHOL, URINE DRUG SCREEN NEGATIVE (NEGATIVE); AMPHET/METH SCREEN,URINE NEGATIVE (NEGATIVE); BARBITURATE SCREEN, URINE NEGATIVE (NEGATIVE); BENZODIAZEPINES SCREEN,URINE NEGATIVE (NEGATIVE); CANNABINOID SCREEN,URINE NEGATIVE (NEGATIVE); COCAINE SCREEN,URINE NEGATIVE (NEGATIVE); METHADONE SCREEN, URINE NEGATIVE (NEGATIVE); OPIATE SCREEN,URINE NEGATIVE (NEGATIVE); PHENCYCLIDINE SCREEN,URINE NEGATIVE (NEGATIVE)
[2022-10-15 08:47] VITALS: BP 113/75; PULSE 85; RESP 18; TEMP 97.4; O2SAT 98
[2022-10-15] MEDS ORDERED: OMEPRAZOLE 20 MG CAPSULE PO SCH (09:00)
[2022-10-15] MEDS ORDERED: LOVASTATIN 20 MG TABLET PO SCH (09:00)
[2022-10-15] MEDS: BuPROPion HCL XL 150 MG ER TABLET PO SCH (09:42)
[2022-10-15] MEDS: SERTRALINE HCL 100 MG TABLET PO SCH ×2 (09:42→17:16)
[2022-10-15] MEDS: LOSARTAN POTASSIUM 25 MG TABLET PO SCH (09:42)
[2022-10-15] MEDS: OLANZapine 10 MG TABLET PO SCH ×2 (09:42→17:16)
[2022-10-15] MEDS: OMEPRAZOLE 20 MG CAPSULE PO SCH (09:43)
[2022-10-15] MEDS: DIVALPROEX SODIUM 500 MG DR TABLET PO SCH ×2 (09:43→17:16)
[2022-10-15] MEDS: HALOPERIDOL 10 MG TABLET PO SCH ×2 (09:43→17:16)
[2022-10-15 16:51] LABS: GLUCOMETER DEV NAME(LOC) BV2S.; GLUCOSE,POINT OF CARE 105 MG/DL (70-110)
[2022-10-15] MEDS: LOVASTATIN 20 MG TABLET PO SCH (17:00)
[2022-10-15] MEDS: BENZTROPINE MESYLATE 2 MG TABLET PO SCH (20:19)
[2022-10-15] MEDS: OXYBUTYNIN CHLORIDE 5 MG ER TABLET PO SCH (20:19)
[2022-10-15 20:42] VITALS: BP 129/71; PULSE 80; RESP 18; TEMP 98.1; O2SAT 95
[2022-10-16 06:26] LABS: GLUCOMETER DEV NAME(LOC) BV2S.; GLUCOSE,POINT OF CARE 137 MG/DL (70-110)
[2022-10-16] MEDS: MetFORMIN HCL 500 MG TABLET PO SCH ×2 (07:02→17:23)
[2022-10-16] MEDS: LEVOTHYROXINE SODIUM 100 MCG TABLET PO SCH (07:02)
[2022-10-16] MEDS: ASPIRIN 81 MG CHEWABLE TABLET PO SCH (07:03)
[2022-10-16 08:45] VITALS: BP 127/68; PULSE 67; RESP 17; TEMP 97.8; O2SAT 96
[2022-10-16 08:45] LABS: CHOL/HDL RATIO 6.6 (4.2-7.3); THYROID STIMULATING HORMONE 3.68 uIU/mL (0.36-3.74)
[2022-10-16] MEDS: HALOPERIDOL 10 MG TABLET PO SCH ×2 (09:44→17:23)
[2022-10-16] MEDS: SERTRALINE HCL 100 MG TABLET PO SCH ×2 (09:44→17:23)
[2022-10-16] MEDS: LOSARTAN POTASSIUM 25 MG TABLET PO SCH (09:44)
[2022-10-16] MEDS: OMEPRAZOLE 20 MG CAPSULE PO SCH (09:44)
[2022-10-16] MEDS: BuPROPion HCL XL 150 MG ER TABLET PO SCH (09:44)
[2022-10-16] MEDS: DIVALPROEX SODIUM 500 MG DR TABLET PO SCH ×2 (09:45→17:23)
[2022-10-16] MEDS: OLANZapine 10 MG TABLET PO SCH ×2 (09:45→17:23)
[2022-10-16] MEDS: LOVASTATIN 20 MG TABLET PO SCH (17:23)
[2022-10-16 17:26] LABS: GLUCOMETER DEV NAME(LOC) BV2S.; GLUCOSE,POINT OF CARE 131 MG/DL (70-110)
[2022-10-16 20:40] VITALS: BP 126/75; PULSE 80; RESP 18; TEMP 97.8; O2SAT 96
[2022-10-16] MEDS: OXYBUTYNIN CHLORIDE 5 MG ER TABLET PO SCH (21:42)
[2022-10-16] MEDS: BENZTROPINE MESYLATE 2 MG TABLET PO SCH (21:42)
[2022-10-17 06:26] LABS: GLUCOMETER DEV NAME(LOC) BV2S.; GLUCOSE,POINT OF CARE 100 MG/DL (70-110)
[2022-10-17] MEDS: LEVOTHYROXINE SODIUM 100 MCG TABLET PO SCH (06:36)
[2022-10-17] MEDS: MetFORMIN HCL 500 MG TABLET PO SCH ×2 (06:36→17:04)
[2022-10-17] MEDS: ASPIRIN 81 MG CHEWABLE TABLET PO SCH (06:36)
[2022-10-17] MEDS: BuPROPion HCL XL 150 MG ER TABLET PO SCH (08:43)
[2022-10-17] MEDS: LOSARTAN POTASSIUM 25 MG TABLET PO SCH (08:43)
[2022-10-17] MEDS: SERTRALINE HCL 100 MG TABLET PO SCH ×2 (08:43→17:04)
[2022-10-17] MEDS: OMEPRAZOLE 20 MG CAPSULE PO SCH (08:43)
[2022-10-17] MEDS: DIVALPROEX SODIUM 500 MG DR TABLET PO SCH ×2 (08:43→17:05)
[2022-10-17] MEDS: OLANZapine 10 MG TABLET PO SCH ×2 (08:43→17:04)
[2022-10-17] MEDS: HALOPERIDOL 10 MG TABLET PO SCH ×2 (08:43→17:04)
[2022-10-17 11:35] VITALS: BP 138/90; PULSE 89; RESP 18; TEMP 98; O2SAT 96
[2022-10-17] MEDS: LOVASTATIN 20 MG TABLET PO SCH (17:04)
[2022-10-17 17:26] LABS: GLUCOMETER DEV NAME(LOC) BV2S.; GLUCOSE,POINT OF CARE 119 MG/DL (70-110)
[2022-10-17] MEDS: BENZTROPINE MESYLATE 2 MG TABLET PO SCH (20:36)
[2022-10-17] MEDS: OXYBUTYNIN CHLORIDE 5 MG ER TABLET PO SCH (20:36)
[2022-10-17 20:43] VITALS: BP 119/64; PULSE 84; RESP 18; TEMP 98.2; O2SAT 98
[2022-10-18 06:26] LABS: GLUCOMETER DEV NAME(LOC) BV2S.; GLUCOSE,POINT OF CARE 100 MG/DL (70-110)
[2022-10-18] MEDS: LEVOTHYROXINE SODIUM 100 MCG TABLET PO SCH (06:32)
[2022-10-18] MEDS: MetFORMIN HCL 500 MG TABLET PO SCH ×2 (06:32→16:53)
[2022-10-18] MEDS: ASPIRIN 81 MG CHEWABLE TABLET PO SCH (06:32)
[2022-10-18 08:42] VITALS: BP 126/61; PULSE 76; RESP 19; TEMP 97.6; O2SAT 94
[2022-10-18] MEDS: OLANZapine 10 MG TABLET PO SCH ×2 (09:38→16:53)
[2022-10-18] MEDS: OMEPRAZOLE 20 MG CAPSULE PO SCH (09:38)
[2022-10-18] MEDS: BuPROPion HCL XL 150 MG ER TABLET PO SCH (09:38)
[2022-10-18] MEDS: DIVALPROEX SODIUM 500 MG DR TABLET PO SCH ×2 (09:38→16:53)
[2022-10-18] MEDS: SERTRALINE HCL 100 MG TABLET PO SCH ×2 (09:38→16:53)
[2022-10-18] MEDS: LOSARTAN POTASSIUM 25 MG TABLET PO SCH (09:38)
[2022-10-18] MEDS: HALOPERIDOL 10 MG TABLET PO SCH ×2 (09:38→16:53)
[2022-10-18 16:11] LABS: GLUCOMETER DEV NAME(LOC) BV2S.; GLUCOSE,POINT OF CARE 137 MG/DL (70-110)
[2022-10-18] MEDS: LOVASTATIN 20 MG TABLET PO SCH (16:53)
[2022-10-18] MEDS: OXYBUTYNIN CHLORIDE 5 MG ER TABLET PO SCH (20:42)
[2022-10-18] MEDS: BENZTROPINE MESYLATE 2 MG TABLET PO SCH (20:42)
[2022-10-18 20:56] VITALS: TEMP 98
[2022-10-19] MEDS: MetFORMIN HCL 500 MG TABLET PO SCH ×2 (06:54→17:21)
[2022-10-19] MEDS: ASPIRIN 81 MG CHEWABLE TABLET PO SCH (06:55)
[2022-10-19] MEDS: LEVOTHYROXINE SODIUM 100 MCG TABLET PO SCH (06:55)
[2022-10-19 08:16] LABS: GLUCOMETER DEV NAME(LOC) BV2S.; GLUCOSE,POINT OF CARE 97 MG/DL (70-110)
[2022-10-19] MEDS: LOSARTAN POTASSIUM 25 MG TABLET PO SCH (09:09)
[2022-10-19] MEDS: HALOPERIDOL 10 MG TABLET PO SCH ×2 (09:09→17:23)
[2022-10-19] MEDS: OMEPRAZOLE 20 MG CAPSULE PO SCH (09:09)
[2022-10-19] MEDS: SERTRALINE HCL 100 MG TABLET PO SCH ×2 (09:10→17:21)
[2022-10-19] MEDS: BuPROPion HCL XL 150 MG ER TABLET PO SCH (09:10)
[2022-10-19] MEDS: OLANZapine 10 MG TABLET PO SCH ×2 (09:10→17:21)
[2022-10-19] MEDS: DIVALPROEX SODIUM 500 MG DR TABLET PO SCH ×2 (09:10→17:21)
[2022-10-19 10:12] VITALS: BP 143/72; PULSE 80; RESP 20; TEMP 98; O2SAT 96
[2022-10-19 17:01] LABS: GLUCOMETER DEV NAME(LOC) BV2S.; GLUCOSE,POINT OF CARE 121 MG/DL (70-110)
[2022-10-19] MEDS: LOVASTATIN 20 MG TABLET PO SCH (17:21)
[2022-10-19] MEDS: BENZTROPINE MESYLATE 2 MG TABLET PO SCH (20:33)
[2022-10-19] MEDS: OXYBUTYNIN CHLORIDE 5 MG ER TABLET PO SCH (20:33)
[2022-10-19 20:44] VITALS: BP 114/71; PULSE 77; RESP 18; TEMP 97.8; O2SAT 99
[2022-10-20 06:46] LABS: GLUCOMETER DEV NAME(LOC) BV2S.; GLUCOSE,POINT OF CARE 92 MG/DL (70-110)
[2022-10-20] MEDS: MetFORMIN HCL 500 MG TABLET PO SCH ×2 (06:54→17:00)
[2022-10-20] MEDS: LEVOTHYROXINE SODIUM 100 MCG TABLET PO SCH (06:55)
[2022-10-20] MEDS: ASPIRIN 81 MG CHEWABLE TABLET PO SCH (06:57)
[2022-10-20 08:34] LABS: APPEARANCE,URINE CLEAR (CLEAR); BILIRUBIN,URINE NEGATIVE (NEGATIVE); COLOR,URINE LIGHT YELLOW (YELLOW); GLUCOSE, URINE (UA) NEGATIVE (NEGATIVE); KETONES,URINE NEGATIVE (NEGATIVE); LEUKOCYTE ESTERASE ,URINE NEGATIVE (NEGATIVE); NITRATE,URINE NEGATIVE (NEGATIVE); OCCULT BLOOD,URINE NEGATIVE (NEGATIVE); PH,URINE 5.5 (5.0-8.0); PH,URINE DRUG SCREEN 5.5 (5.0-8.0); PROTEIN,URINE NEGATIVE (NEGATIVE); SPECIFIC GRAVITIY, URINE 1.015 (1.003-1.030); UROBILINOGEN,URINE <=1.0 mg/dL (<=1.0)
[2022-10-20 08:42] LABS: AMPHET/METH SCREEN,URINE NEGATIVE (NEGATIVE); BARBITURATE SCREEN, URINE NEGATIVE (NEGATIVE); BENZODIAZEPINES SCREEN,URINE NEGATIVE (NEGATIVE); CANNABINOID SCREEN,URINE NEGATIVE (NEGATIVE); COCAINE SCREEN,URINE NEGATIVE (NEGATIVE); METHADONE SCREEN, URINE NEGATIVE (NEGATIVE); OPIATE SCREEN,URINE NEGATIVE (NEGATIVE); PHENCYCLIDINE SCREEN,URINE NEGATIVE (NEGATIVE)
[2022-10-20 08:43] LABS: ALCOHOL, URINE DRUG SCREEN NEGATIVE (NEGATIVE)
[2022-10-20 08:44] VITALS: BP 127/74; PULSE 74; RESP 18; TEMP 97.5; O2SAT 95
[2022-10-20] MEDS: OLANZapine 10 MG TABLET PO SCH ×2 (08:52→17:00)
[2022-10-20] MEDS: OMEPRAZOLE 20 MG CAPSULE PO SCH (08:52)
[2022-10-20] MEDS: BuPROPion HCL XL 150 MG ER TABLET PO SCH (08:52)
[2022-10-20] MEDS: HALOPERIDOL 10 MG TABLET PO SCH ×2 (08:52→17:00)
[2022-10-20] MEDS: DIVALPROEX SODIUM 500 MG DR TABLET PO SCH ×2 (08:52→17:00)
[2022-10-20] MEDS: LOSARTAN POTASSIUM 25 MG TABLET PO SCH (08:53)
[2022-10-20] MEDS: SERTRALINE HCL 100 MG TABLET PO SCH ×2 (08:53→17:00)
[2022-10-20] MEDS: LOVASTATIN 20 MG TABLET PO SCH (17:00)
[2022-10-20 17:06] LABS: GLUCOMETER DEV NAME(LOC) BV2S.; GLUCOSE,POINT OF CARE 148 MG/DL (70-110)
[2022-10-20] MEDS: BENZTROPINE MESYLATE 2 MG TABLET PO SCH (20:44)
[2022-10-20] MEDS: OXYBUTYNIN CHLORIDE 5 MG ER TABLET PO SCH (20:44)
[2022-10-20 20:49] VITALS: BP 109/61; PULSE 75; RESP 18; TEMP 97.6; O2SAT 98
[2022-10-21 06:26] LABS: GLUCOMETER DEV NAME(LOC) BV2S.; GLUCOSE,POINT OF CARE 106 MG/DL (70-110)
[2022-10-21] MEDS: ASPIRIN 81 MG CHEWABLE TABLET PO SCH (06:37)
[2022-10-21] MEDS: MetFORMIN HCL 500 MG TABLET PO SCH ×2 (06:37→17:24)
[2022-10-21] MEDS: LEVOTHYROXINE SODIUM 100 MCG TABLET PO SCH (06:37)
[2022-10-21 08:35] VITALS: BP 121/75; PULSE 70; RESP 18; TEMP 97.8; O2SAT 95
[2022-10-21] MEDS: BuPROPion HCL XL 150 MG ER TABLET PO SCH (08:41)
[2022-10-21] MEDS: HALOPERIDOL 10 MG TABLET PO SCH ×2 (08:41→17:24)
[2022-10-21] MEDS: LOSARTAN POTASSIUM 25 MG TABLET PO SCH (08:41)
[2022-10-21] MEDS: SERTRALINE HCL 100 MG TABLET PO SCH ×2 (08:41→17:24)
[2022-10-21] MEDS: DIVALPROEX SODIUM 500 MG DR TABLET PO SCH ×2 (08:41→17:24)
[2022-10-21] MEDS: OMEPRAZOLE 20 MG CAPSULE PO SCH (08:41)
[2022-10-21] MEDS: OLANZapine 10 MG TABLET PO SCH ×2 (08:41→17:24)
[2022-10-21 16:35] LABS: GLUCOMETER DEV NAME(LOC) BV2S.; GLUCOSE,POINT OF CARE 107 MG/DL (70-110)
[2022-10-21] MEDS: LOVASTATIN 20 MG TABLET PO SCH (17:24)
[2022-10-21 20:41] VITALS: BP 124/84; PULSE 75; RESP 17; TEMP 98.3; O2SAT 94
[2022-10-21] MEDS: OXYBUTYNIN CHLORIDE 5 MG ER TABLET PO SCH (20:46)
[2022-10-21] MEDS: BENZTROPINE MESYLATE 2 MG TABLET PO SCH (20:46)
[2022-10-22] MEDS: MetFORMIN HCL 500 MG TABLET PO SCH ×2 (06:31→16:33)
[2022-10-22] MEDS: LEVOTHYROXINE SODIUM 100 MCG TABLET PO SCH (06:31)
[2022-10-22] MEDS: ASPIRIN 81 MG CHEWABLE TABLET PO SCH (06:32)
[2022-10-22 06:50] LABS: GLUCOMETER DEV NAME(LOC) BV2S.; GLUCOSE,POINT OF CARE 81 MG/DL (70-110)
[2022-10-22] MEDS: BuPROPion HCL XL 150 MG ER TABLET PO SCH (08:38)
[2022-10-22] MEDS: DIVALPROEX SODIUM 500 MG DR TABLET PO SCH ×2 (08:38→16:33)
[2022-10-22] MEDS: OMEPRAZOLE 20 MG CAPSULE PO SCH (08:38)
[2022-10-22] MEDS: OLANZapine 10 MG TABLET PO SCH ×2 (08:38→16:33)
[2022-10-22] MEDS: SERTRALINE HCL 100 MG TABLET PO SCH ×2 (08:38→16:34)
[2022-10-22 08:54] VITALS: BP 122/60; PULSE 68; RESP 19; TEMP 98; O2SAT 96
[2022-10-22] MEDS: LOSARTAN POTASSIUM 25 MG TABLET PO SCH (09:04)
[2022-10-22] MEDS: HALOPERIDOL 10 MG TABLET PO SCH ×2 (09:05→16:34)
[2022-10-22] MEDS: LOVASTATIN 20 MG TABLET PO SCH (16:34)
[2022-10-22 17:36] LABS: GLUCOMETER DEV NAME(LOC) BV2S.; GLUCOSE,POINT OF CARE 131 MG/DL (70-110)
[2022-10-22 20:47] VITALS: BP 126/93; PULSE 85; RESP 18; TEMP 97.4; O2SAT 94
[2022-10-22] MEDS: BENZTROPINE MESYLATE 2 MG TABLET PO SCH (21:15)
[2022-10-22] MEDS: OXYBUTYNIN CHLORIDE 5 MG ER TABLET PO SCH (21:15)
[2022-10-23] MEDS: LEVOTHYROXINE SODIUM 100 MCG TABLET PO SCH (06:29)
[2022-10-23] MEDS: MetFORMIN HCL 500 MG TABLET PO SCH ×2 (06:29→17:12)
[2022-10-23] MEDS: ASPIRIN 81 MG CHEWABLE TABLET PO SCH (06:30)
[2022-10-23 06:41] LABS: GLUCOMETER DEV NAME(LOC) BV2S.; GLUCOSE,POINT OF CARE 92 MG/DL (70-110)
[2022-10-23 08:27] VITALS: BP 132/64; PULSE 85; RESP 18; TEMP 97; O2SAT 92
[2022-10-23] MEDS: OMEPRAZOLE 20 MG CAPSULE PO SCH (09:37)
[2022-10-23] MEDS: LOSARTAN POTASSIUM 25 MG TABLET PO SCH (09:38)
[2022-10-23] MEDS: HALOPERIDOL 10 MG TABLET PO SCH ×2 (09:38→17:11)
[2022-10-23] MEDS: DIVALPROEX SODIUM 500 MG DR TABLET PO SCH ×2 (09:38→17:11)
[2022-10-23] MEDS: OLANZapine 10 MG TABLET PO SCH ×2 (09:38→17:11)
[2022-10-23] MEDS: BuPROPion HCL XL 150 MG ER TABLET PO SCH (09:38)
[2022-10-23] MEDS: SERTRALINE HCL 100 MG TABLET PO SCH ×2 (09:38→17:11)
[2022-10-23 16:41] LABS: GLUCOMETER DEV NAME(LOC) BV2S.; GLUCOSE,POINT OF CARE 100 MG/DL (70-110)
[2022-10-23] MEDS: LOVASTATIN 20 MG TABLET PO SCH (17:11)
[2022-10-23] MEDS: BENZTROPINE MESYLATE 2 MG TABLET PO SCH (20:41)
[2022-10-23] MEDS: OXYBUTYNIN CHLORIDE 5 MG ER TABLET PO SCH (20:41)
[2022-10-23 22:39] VITALS: BP 124/68; PULSE 79; RESP 19; TEMP 97.2; O2SAT 96
[2022-10-24] MEDS: MetFORMIN HCL 500 MG TABLET PO SCH ×2 (06:43→17:05)
[2022-10-24] MEDS: LEVOTHYROXINE SODIUM 100 MCG TABLET PO SCH (06:43)
[2022-10-24] MEDS: ASPIRIN 81 MG CHEWABLE TABLET PO SCH (06:43)
[2022-10-24 08:51] VITALS: BP 116/66; PULSE 88; RESP 16; TEMP 97.3; O2SAT 96
[2022-10-24 08:51] LABS: GLUCOMETER DEV NAME(LOC) BV2S.; GLUCOSE,POINT OF CARE 85 MG/DL (70-110)
[2022-10-24] MEDS: DIVALPROEX SODIUM 500 MG DR TABLET PO SCH ×2 (09:37→17:05)
[2022-10-24] MEDS: OMEPRAZOLE 20 MG CAPSULE PO SCH (09:37)
[2022-10-24] MEDS: BuPROPion HCL XL 150 MG ER TABLET PO SCH (09:37)
[2022-10-24] MEDS: SERTRALINE HCL 100 MG TABLET PO SCH ×2 (09:37→17:05)
[2022-10-24] MEDS: LOSARTAN POTASSIUM 25 MG TABLET PO SCH (09:37)
[2022-10-24] MEDS: HALOPERIDOL 10 MG TABLET PO SCH ×2 (09:37→17:05)
[2022-10-24] MEDS: OLANZapine 10 MG TABLET PO SCH ×2 (09:37→17:05)
[2022-10-24 16:36] LABS: GLUCOMETER DEV NAME(LOC) BV2S.; GLUCOSE,POINT OF CARE 102 MG/DL (70-110)
[2022-10-24] MEDS: LOVASTATIN 20 MG TABLET PO SCH (17:05)
[2022-10-24] MEDS: OXYBUTYNIN CHLORIDE 5 MG ER TABLET PO SCH (20:21)
[2022-10-24] MEDS: BENZTROPINE MESYLATE 2 MG TABLET PO SCH (20:21)
[2022-10-24 20:37] VITALS: BP 125/63; PULSE 67; RESP 17; TEMP 97.7; O2SAT 95
[2022-10-25] MEDS: MetFORMIN HCL 500 MG TABLET PO SCH ×2 (06:37→17:03)
[2022-10-25] MEDS: ASPIRIN 81 MG CHEWABLE TABLET PO SCH (06:38)
[2022-10-25] MEDS: LEVOTHYROXINE SODIUM 100 MCG TABLET PO SCH (06:41)
[2022-10-25 06:46] LABS: GLUCOMETER DEV NAME(LOC) BV2S.; GLUCOSE,POINT OF CARE 106 MG/DL (70-110)
[2022-10-25] MEDS: OMEPRAZOLE 20 MG CAPSULE PO SCH (09:35)
[2022-10-25] MEDS: DIVALPROEX SODIUM 500 MG DR TABLET PO SCH ×2 (09:35→17:03)
[2022-10-25] MEDS: BuPROPion HCL XL 150 MG ER TABLET PO SCH (09:35)
[2022-10-25] MEDS: LOSARTAN POTASSIUM 25 MG TABLET PO SCH (09:35)
[2022-10-25] MEDS: OLANZapine 10 MG TABLET PO SCH ×2 (09:35→17:03)
[2022-10-25] MEDS: SERTRALINE HCL 100 MG TABLET PO SCH ×2 (09:35→17:03)
[2022-10-25] MEDS: HALOPERIDOL 10 MG TABLET PO SCH ×2 (09:35→17:03)
[2022-10-25 16:00] VITALS: BP 137/77; PULSE 76; RESP 18; TEMP 97.3; O2SAT 98
[2022-10-25 16:31] LABS: GLUCOMETER DEV NAME(LOC) BV2S.; GLUCOSE,POINT OF CARE 114 MG/DL (70-110)
[2022-10-25] MEDS: LOVASTATIN 20 MG TABLET PO SCH (17:03)
[2022-10-25 20:21] VITALS: BP 131/70; PULSE 70; RESP 18; TEMP 97.9; O2SAT 97
[2022-10-25] MEDS: OXYBUTYNIN CHLORIDE 5 MG ER TABLET PO SCH (21:17)
[2022-10-25] MEDS: BENZTROPINE MESYLATE 2 MG TABLET PO SCH (21:17)
[2022-10-26] MEDS: LEVOTHYROXINE SODIUM 100 MCG TABLET PO SCH (06:14)
[2022-10-26 06:21] LABS: GLUCOMETER DEV NAME(LOC) BV2S.; GLUCOSE,POINT OF CARE 98 MG/DL (70-110)
[2022-10-26] MEDS: ASPIRIN 81 MG CHEWABLE TABLET PO SCH (06:47)
[2022-10-26] MEDS: MetFORMIN HCL 500 MG TABLET PO SCH (06:48)
[2022-10-26] MEDS: DIVALPROEX SODIUM 500 MG DR TABLET PO SCH (08:43)
[2022-10-26] MEDS: BuPROPion HCL XL 150 MG ER TABLET PO SCH (08:43)
[2022-10-26] MEDS: OLANZapine 10 MG TABLET PO SCH (08:43)
[2022-10-26] MEDS: OMEPRAZOLE 20 MG CAPSULE PO SCH (08:43)
[2022-10-26] MEDS: SERTRALINE HCL 100 MG TABLET PO SCH (08:43)
[2022-10-26] MEDS: HALOPERIDOL 10 MG TABLET PO SCH (08:44)
[2022-10-26] MEDS: LOSARTAN POTASSIUM 25 MG TABLET PO SCH (08:44)
[2022-10-26 08:49] VITALS: BP 131/78; PULSE 80; RESP 19; TEMP 98; O2SAT 95
[2022-10-26] MEDS ORDERED: SERT-440 PO (13:11)
[2022-10-26] MEDS ORDERED: BUPR-49 PO (13:11)
[2022-10-26] MEDS ORDERED: DIVA-112 PO (13:11)
[2022-10-26] MEDS ORDERED: OLAN10TA74 PO (13:11)
[2022-10-26] MEDS ORDERED: BENZ2TAB71 PO (13:11)
[2022-10-26] MEDS ORDERED: HALO10TA21 PO (13:11)
[2022-10-26] MEDS ORDERED: METF-1211 PO (13:27)
== END 2022-10-26 16:30 | disposition home or self-care (01) | DRG 750 ==
LOC: B2S 16:11
PROVIDERS: ADMIT Psychiatry & Neurology Child & Adolescent Psychiatry; ATTEND Psychiatry & Neurology Child & Adolescent Psychiatry
DX: F20.0 Paranoid schizophrenia (principal); E11.9 Type 2 diabetes mellitus without complications; E78.5 Hyperlipidemia, unspecified; K21.9 Gastro-esophageal reflux disease without esophagitis; I10 Essential (primary) hypertension; F10.10 Alcohol abuse, uncomplicated; F19.10 Other psychoactive substance abuse, uncomplicated; Z20.822 Contact with and (suspected) exposure to COVID-19; R32 Unspecified urinary incontinence; Z79.899 Other long term (current) drug therapy; Z79.82 Long term (current) use of aspirin
CPT/HCPCS: 80053; 80061; 80164; 80307; 81003; 82962; 83036; 84439; 84443; 85025; 86803; 87340